=== PATIENT | female | born 1960 | race Caucasian/White ===

== ENCOUNTER → 2017-05-06 | Outpatient (CLI) | payer OTHER ==
[~2017-05-06] MED LIST: GADOBUTROL 10 ML VIAL IVP ONE
== END ==
LOC: FIMAGING 18:39
PROVIDERS: ATTEND Surgery
DX: T87.44 Infection of amputation stump, left lower extremity (principal); L97.829 Non-pressure chronic ulcer of other part of left lower leg with unspecified severity; R93.6 Abnormal findings on diagnostic imaging of limbs; Z96.642 Presence of left artificial hip joint
CPT/HCPCS: A9585

== ENCOUNTER 2017-05-14 06:06 | Inpatient (IN) | payer OTHER ==
[~2017-05-14 06:06] MED LIST changes: +BUPIVACAINE 0.5% 30 ML SDV ONE; -GADOBUTROL 10 ML VIAL IVP ONE
[2017-05-14] MEDS ORDERED: ceFAZolin 2 GM/SWFI 2 GM/20 ML SYR IVP ONE (06:31)
[2017-05-14] MEDS ORDERED: LR 1,000 ML IV ONE (06:32)
--- NOTE | 2017-05-14 06:39 | PDANEPAE ---
ANE History of Present Illness s/p R BKA, here for revision ANE Past Medical History - Cardiovascular History Hx Hypertension: No Hx Arrhythmias: No Hx Chest Pain: No Hx Coronary Artery / Peripheral Vascular Disease: No Hx CHF / Valvular Disease: No Hx Palpitations: No Cardiovascular History Comment: RUNS LOW BP - Pulmonary History Hx COPD: No Hx Asthma/Reactive Airway Disease: Yes Hx Recent Upper Respiratory Infection: No Hx Oxygen in Use at Home: No Hx Sleep Apnea: No Sleep Apnea Screening Result - Last Documented: Negative Pulmonary History Comment: PNEUMONIA IN PAST - Neurologic History Hx Cerebrovascular Accident: No Hx Seizures: No Hx Dementia: No Neurologic History Comment: ? POSS TIA IN PAST -YRS AGO - Endocrine History Hx Diabetes: No Endocrine History Comment: HYPOTHYROID - Renal History Hx Renal Disorders: No - Liver History Hx Hepatic Disorders: No Hepatic History Comment: CHOLECYSTECTOMY - Neurological & Psychiatric Hx Hx Neurological and Psychiatric Disorders: Yes Neurological / Psychiatric History Comment: ANXIETY - Cancer History Hx Cancer: No - Congenital Disorder History Hx Congenital Disorders: No - GI History Hx Gastrointestinal Disorders: Yes Gastrointestinal History Comment: ACID REFLUX. CONSTIPATION - Other Health History Other Health History: PT HAS WOUND VAC IN PLACE. L LEG DYSPLASIA. OSTEOARTHRITIS - Chronic Pain History Chronic Pain: Yes (L LEG PAIN SEVERE) - Surgical History Prior Surgeries: HIP REPLACEMENT L 01/2017. VASCULAR SURGERY REPAIR. L HIP DEBRIDEMENT W/WOUND VAC. L LEG AMPUTATION BK - ALL AT [facility] IN [place]. CHOLECYSTECTOMY. HYSTERECTOMY. X3. HIP SURGERY X2 ANE Review of Systems Review of Systems: - Exercise capacity Exercise capacity: >=4 METS ANE Patient History - Allergies Allergies/Adverse Reactions: No Known Allergies Allergy (Unverified 12/30/11 08:29) - Home Medications Home Medications: busPIRone 05/27/13 [Last Taken Unknown] Albuterol Sulfate 05/13/17 [Last Taken Unknown] Ambien 05/13/17 [Last Taken Unknown] Folic Acid 05/13/17 [Last Taken Unknown] Gabapentin 05/13/17 [Last Taken Unknown] Iron 05/13/17 [Last Taken Unknown] Levothyroxine 05/13/17 [Last Taken Unknown] Morphine Sulfate 05/13/17 [Last Taken Unknown] Multivitamin (*) 05/13/17 [Last Taken Unknown] Bim-3 05/13/17 [Last Taken Unknown] Oxycodone HCl 05/13/17 [Last Taken Unknown] Plavix 05/13/17 [Last Taken Unknown] Qvar 05/13/17 [Last Taken Unknown] - NPO status NPO Status: no food or drink >8 hours - Anes Hx Anes Hx: no prior problems - Smoking Hx Smoking Status: Never smoked - Alcohol Use Alcohol Use: None - Family Anes Hx Family Hx Anesthesia Complications: MOTHER HAD ARREST DURING INDUCTION OF ANESTHESIA ANE Labs/Vital Signs - Vital Signs Vital Signs: reviewed preoperatively; see RN documention for details Height: 152.4 cm Weight: 54.431 kg ANE Physical Exam - Airway Neck exam: FROM Mallampati Score: Class 3 Mouth exam: normal dental/mouth exam - Pulmonary Pulmonary: no respiratory distress - Cardiovascular Cardiovascular: regular rate and rhythym - ASA Status ASA Status: III ANE Anesthesia Plan Anesthesia Plan: general endotracheal anesthesia, GA with mask Total IV Anesthesia: Yes
[2017-05-14] MEDS ORDERED: MIDAZOLAM 2 MG/2 ML VIAL IVP ONE (06:44)
--- NOTE | 2017-05-14 06:46 | CPEKG ---
Heart Rate: 100 RR Interval: 600 P-R Interval: 144 QRSD Interval: 74 QT Interval: 344 QTC Interval: 444 P Johnston: 77 QRS Johnston: 62 T Wave Johnston: 60 EKG Severity - OTHERWISE NORMAL ECG - EKG Impression: SINUS TACHYCARDIA Electronically Signed By: Azeem Holguin 14-May-2017 17:31:07
[2017-05-14] MEDS ORDERED: PROPOFOL/EMULSION 500 MG/50 ML BOTTLE IV ONE (06:49)
[2017-05-14] MEDS ORDERED: KETAMINE 200 MG/20 ML VIAL ONE (06:50)
--- NOTE | 2017-05-14 07:02 | PDHPUP ---
History & Physical Update H&P update statement: This history and physical update is based on an assessment of the patient which was completed after admission or registration (within 24 hours), but prior to the surgery/procedure. H&P update: H&P reviewed & patient examined, no change in patient's condition since H&P completed (increased drainage from wound vac)
[2017-05-14 07:17] LABS: PLATELET COUNT 422 10^3/uL (150-400)
[2017-05-14] MEDS: SCOPOLAMINE HYDROBROMIDE 1 MG/3 DAYS PATCH TD SCH (07:23)
[2017-05-14] MEDS ORDERED: fentaNYL 100 MCG/2 ML INJ ONE ×2 (07:43→08:54)
[2017-05-14] MEDS ORDERED: THROMBIN (BOVINE) 5,000 UNIT VIAL TP ONE (07:49)
[2017-05-14] MEDS ORDERED: ONDANSETRON 4 MG/2 ML VIAL IVP PRN ×2 (08:20→08:53)
--- NOTE | 2017-05-14 08:24 | POSTOPPROG ---
Post Op Note Date of Operation: 05/17/17 Surgeon: Pina Greenberg Anesthesiologist: kait Anesthesia: IV Sedation Pre-op Diagnosis: infected L BKA Post-op Diagnosis: same Indication: 56 yo with complex hip, injury to iliac, L bka, now infected Procedure: revision L bka Findings: necrotic muscle Inf/Abcess present in the surg proc area at time of surgery?: Yes Depth: Deep Incisional (Fascial) EBL: 100-500 Drains: Wound Vac Specimen(s): micro and path
[2017-05-14] MEDS ORDERED: NALOXONE HCL 0.4 MG/ML INJ IVP PRN (08:53)
--- NOTE | 2017-05-14 08:56 | POSTANESTH ---
Post Anesthetic Evaluation Cardiovascular Status: Normal, Stable, Similar to Pre-Op Cond Respiratory Status: Normal, Stable, Similar to Pre-op Cond. Level of Consciousness/Mental Status: Can Participate in Eval Pain Control: Adequate, Prn Tx Ordered Nausea/Vomiting Control: Adequate, Prn Tx Ordered Complications Possibly Related to Anesthesia: None Noted
[2017-05-14] MEDS: fentaNYL 100 MCG/2 ML INJ IVP PRN ×3 (08:59→09:12)
[2017-05-14] MEDS ORDERED: HYDROmorphONE/DILAUDID 1 MG/ML INJ ONE (09:15)
[2017-05-14] MEDS: HYDROmorphONE/DILAUDID 1 MG/ML INJ IVP PRN ×3 (09:17→09:46)
[2017-05-14] MEDS: LIDOCAINE 4%/MENTHOL 1% PATCH TD SCH (10:41)
[2017-05-14] MEDS: oxyCODONE IR 5 MG TAB PO PRN ×2 (10:56→11:42)
[2017-05-14] MEDS ORDERED: ceFAZolin 2 GM/SWFI 20 ML SYR IVP ONE (12:33)
[2017-05-14] MEDS: NS 1,000 ML IV SCH (16:08)
[2017-05-14] MEDS ORDERED: ALBUTEROL INH PREPACK MDI TAKEHOME PRN (16:08)
[2017-05-14] MEDS ORDERED: ALBUTEROL 60 PUFFS/8 GM MDI IH PRN (16:12)
[2017-05-14] MEDS ORDERED: ALBUMIN 5% 500 ML IV ONE (17:00)
[2017-05-14] MEDS: cefTRIAXone 2 GM in STERILE WATER INJ 20 ML IV SCH (18:29)
--- NOTE | 2017-05-14 18:51 | GCON ---
[f rep st] CONSULTATION INFECTIOUS DISEASE CONSULTATION DATE OF CONSULTATION: 05/14/2017 REFERRING PHYSICIAN: Pina Greenberg MD REASON FOR CONSULTATION: Left BKA wound infection versus tibial osteomyelitis. HISTORY OF PRESENT ILLNESS: A 56-year-old woman with minimal past medical history, who presented mid January for an elective complex left total hip or hip arthroplasty, complicated by injury to the le ft iliac artery, with significant hematoma, resultant anemia and hypovolemic shock. She initially de clined blood products due to being a Holiness, but acutely developed left lower extremity is chemia, and when had a corresponding hemoglobin of 2.9 and surgery could not proceed without consent for transfusion, which was eventually obtained and transfusion was performed, and she underwent an il iofemoral thrombectomy, balloon angio of the left external iliac artery, and exploration of the popli teal artery, as well as a 4-part compartment fasciotomy. Revascularization, unfortunately, did not c ompletely save her leg and she required a BKA. She underwent amputation on February 11, and a left BKA February 24, 2017. She has subsequently developed a persistent wound at the end of this left BKA site, and today underwent revision of this wound by Dr. Greenberg, where necrotic muscle was identified. The area was revised and a wound VAC was placed and bone biopsy was also obtained for a path and cu lture to understand the extent of the infection. Gram stain from the tissue showed 4+ cocci and 4+ r ods. Her prior organisms are not known at the time of this dictation. The patient did complete some prolonged antibiotics, initially vancomycin and cefepime for pneumonia, and eventually changed to cefazolin, completing a 5-week course. Patient has had both a home cathet er and a PICC line. Today, patient expresses some significant reluctance in having a PICC line place d again. This was briefly discussed and assessed that it was better to take it [id number] based on culture results and bone path to determine need for IV antibiotics. Further, patient's course was c omplicated by C difficile, which was treated with vancomycin. PAST MEDICAL HISTORY/PAST SURGICAL HISTORY: Hypothyroidism, anxiety, left hip dysplasia, status post total left hip arthroplasty as above, osteoarthritis, left BKA, and a deep-seated infection which [facility] describes as a prosthetic hip infection, but records are pending. ALLERGIES: NKDA. SOCIAL HISTORY: She is a Holiness. She has 3 children. One daughter is at bedside. She i s . She is originally from [facility], moving to [place] over 20 years ago. 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 FAMILY HISTORY: Reviewed and noncontributory. REVIEW OF SYSTEMS: A complete 10-point review of systems was performed and is negative, except as me ntioned in the HPI. Patient is very emotionally strained by her recent series of events. PHYSICAL EXAMINATION: VITAL SIGNS: Blood pressure 185/53, heart rate 120, respiratory rate 18, satu ration 99% on room air, temperature 37.3 with a T-max of 37.4. GENERAL: This is a woman who appears younger than her stated age, mildly toxic, with significant pallor. HEENT: She has good dentition. Dry mucous membranes. NECK: Supple. CARDIOVASCULAR: Tachycardic. Regular rhythm. CHEST: Ana Cristina r to auscultation bilaterally. ABDOMEN: Soft, nontender. EXTREMITIES: Left leg BKA stump was warm , with a wound VAC in place, with some obvious dusky tissue along the edge. LABORATORY DATA: Preoperatively, white count 8.3, hematocrit 35, platelets of 422, 49% neutrophils, 38% lymphocytes. Microbiology as per HPI. Path is also pending. ASSESSMENT AND PLAN: This is a 56-year-old woman who had an unfortunate series of events related to elective hip arthroplasty, eventually resulting in a left below-knee amputation, which has been diffi cult to heal, which is likely multifactorial due to contributing factor of impaired blood supply, as well as deep-seated infection. The patient has now undergone debridement with cultures and assessmen t of whether or not the bone is involved. Differential diagnosis of bony abnormalities could be due to past ischemia versus osteomyelitis. Based on Gram stain, would start patient on ceftriaxone 1 g i ntravenously daily, and would resume vancomycin 125 p.o. b.i.d. for prevention of recurrence of Clost ridium difficile. We will try to obtain additional records to better delineate specifics of past inf ection requiring intravenous antibiotics. I discussed the potential need for peripherally inserted c entral catheter line, which was extremely upsetting to the patient, and elected to direct to litai ng this issue in the future after more data is obtained. Also, discussed the options for nonstandard therapy, such as high-dose oral antibiotics for treatment of her infection. Time was 75 minutes. Greater than 50% of time spent with education and counseling of the patient and her daughter including potential need for prolonged IV antibiotics as the gold standard for treating osteomyelitis. Alternative therapies, such as high-dose oral antibiotics, safety of PICC line place ment, and attempts at minimizing blood draws going forward. Thank you for this consultation. /[id number]/MODL
[2017-05-14] MEDS: GABAPENTIN 100 MG CAP PO SCH (21:09)
[2017-05-14] MEDS: VANCOMYCIN 125 MG/2.5 ML UDL PO SCH (21:09)
[2017-05-14] MEDS: busPIRone 5 MG TAB PO SCH (21:10)
[2017-05-14] MEDS: PATCH REMOVAL 1 EA PATCH TD SCH (21:16)
[2017-05-14] MEDS: BECLOMETHASONE QVAR 40 MDI IH SCH (21:42)
[2017-05-15] MEDS: LEVOTHYROXINE 50 MCG TAB PO SCH (04:57)
[2017-05-15] MEDS: NS 1,000 ML IV SCH ×2 (04:58→15:16)
[2017-05-15] MEDS: oxyCODONE IR 5 MG TAB PO PRN ×4 (06:48→19:47)
[2017-05-15] MEDS: MULTIVITAMINS 1 EACH TAB PO SCH (08:55)
[2017-05-15] MEDS: cefTRIAXone 2 GM in STERILE WATER INJ 20 ML IV SCH (08:55)
[2017-05-15] MEDS: VANCOMYCIN 125 MG/2.5 ML UDL PO SCH ×2 (08:55→21:20)
[2017-05-15] MEDS: GABAPENTIN 100 MG CAP PO SCH ×3 (08:55→21:20)
[2017-05-15] MEDS: busPIRone 5 MG TAB PO SCH ×2 (08:55→21:20)
[2017-05-15] MEDS: FOLIC ACID 1 MG TAB PO SCH (08:55)
[2017-05-15] MEDS: FERRO-SEQUELS 65 MG TAB.ER PO SCH (08:55)
[2017-05-15] MEDS ORDERED: CLOPIDOGREL BISULFATE 75 MG TAB PO SCH (09:00)
[2017-05-15] MEDS: LIDOCAINE 4%/MENTHOL 1% PATCH TD SCH (09:01)
[2017-05-15] MEDS: BECLOMETHASONE QVAR 40 MDI IH SCH ×2 (10:09→20:33)
--- NOTE | 2017-05-15 13:44 | SOAPPROG ---
SOAP Progress Note Assessment/Plan: Assessment/Plan: 56yo F POD#1 s/p revision of L BKA for chronic wound/delayed healing Wound vac veraflo to suction - will change MWF ABLA - Pt is Zoroastrianism and declines blood products. Received albumin yesterday. Will consult Heme to discuss EPO and iron supp. Repeat H/H tomorrow Pain controlled Continue inpatient. Patient additionally seen by Dr. Lopes S: c/o dizziness when she tries to get up. tired. pain controlled c oxycodone O: Laying in bed, comfortable, NAD, daughter at bedside Tachycardic No increased WOB, Supplemental O2 Wound vac intact to suction. no evidence of infection. no blood in vac canister. Objective: Vital Signs Temp Pulse Resp BP Pulse Ox 37.3 C 98 14 101/65 100 05/15/17 11:27 05/15/17 11:27 05/15/17 11:27 05/15/17 11:27 05/15/17 11:27 Microbiology 05/14/17 07:39 Gram Stain - Final Knee - Tissue Laboratory Results 05/15/17 05:30 05/15/17 05:30 05/14/17 05/15/17 05/16/17 05:59 05:59 05:59 Intake Total 3390 Output Total 350 1325 Balance 3040 -1325 ICD10 Worksheet Patient Problems: Problems Problem Status Onset Postoperative infection Acute
[2017-05-15] MEDS ORDERED: CYANO/VITAMIN B12 1000 MCG/ML VIAL IM ONE (15:29)
[2017-05-15] MEDS ORDERED: SODIUM FERRIC GLUCONAT/SUCROSE 125 MG in NS 100 ML IV ONE (15:29)
[2017-05-15] MEDS: EPOETIN ALFA 10,000 UNIT/ML VIAL SC SCH (16:35)
--- NOTE | 2017-05-15 17:24 | PCMIDPN ---
Assessment/Plan: Assessment: Left BKA wound infection. Patient covered with IV ceftriaxone. Also taking oral vancomycin. Awaiting results of surgical path. In the meantime we will continue this regimen. Plan: 1. Continue IV ceftriaxone. 2. Continue p.o. vancomycin. 3. Follow culture data and path results. Subjective: Patient is resting in her hospital bed. She is upset when she thinks about how she lost her left leg. Otherwise she states that she is feeling well. Her pain is well controlled. Objective: Ceftriaxone # 2 P.o. vancomycin # 1 Vital Signs Temp Pulse Resp BP Pulse Ox 37.2 C 102 H 16 100/55 L 100 05/15/17 15:31 05/15/17 15:31 05/15/17 15:31 05/15/17 15:31 05/15/17 15:31 Microbiology 05/14/17 07:39 Gram Stain - Final Knee - Tissue Laboratory Results 05/15/17 05:30 05/15/17 05:30 05/14/17 05/15/17 05/16/17 05:59 05:59 05:59 Intake Total 3390 400 Output Total 350 2025 Balance 3040 -1625 C-Reactive Protein 69.6 mg/L (<10.0) H 05/15/17 05:30 - Physical Exam General Appearance: WD/WN, alert, no apparent distress, non-toxic Respiratory: lungs clear, normal breath sounds, No respiratory distress Cardiac/Chest: regular rate, rhythm, tachycardia Extremities: non-tender, No normal inspection Skin: normal color, warm/dry, No rash Neuro/Psych: alert, normal mood/affect, oriented x 3 ICD10 Worksheet Patient Problems: Problems Problem Status Onset Postoperative infection Acute - ICD10 Problem Qualifiers (1) Postoperative infection
--- NOTE | 2017-05-15 18:25 | ASMTCMCOM ---
CM Note CM Note Notes: Pt in yesterday for revision of her left BKA with cellulitis. Pt came with her wound vac that was previously placed, should be in room. Pt is a Jehovas Witness and refuses blood products, Dc plan unclear, BELLE w/f. DC Plan: TBD Date Signed: 05/15/2017 06:25 PM Electronically Signed By:Jennifer Stokes RN
[2017-05-15] MEDS: PATCH REMOVAL 1 EA PATCH TD SCH (21:48)
--- NOTE | 2017-05-15 22:12 | GCON ---
[f rep st] CONSULTATION HEMATOLOGY CONSULTATION REFERRING PHYSICIAN: Pina Greenberg MD REASON FOR CONSULTATION: Anemia in Restorationist patient. HISTORY OF PRESENT ILLNESS: The patient is a 56-year-old woman with no significant past medical hist ory up until January when she underwent elective complex left total hip arthroplasty. This surgery was complicated by an injury to the left iliac artery, a significant hematoma that led to hypovolemic shock. She initially declined blood products, but she was developing severe left lower extremity is chemia. Her hemoglobin was down to 2.9 g/dL. She was eventually consented to transfusion so she cou ld undergo surgery, and she underwent an iliofemoral thrombectomy, balloon angioplasty of the left ex ternal iliac artery, and exploration of the popliteal artery. There was also a fasciotomy performed. Unfortunately, this did not save her leg, and she required a nzqmo-ddv-[id number] amputation on February 24. She has had persistent wound issues at this site and yesterday underwent revision by Dr. Greenberg. She is on Plavix from the previous procedure, which was continued, but she had a lot of oozing at t he time. Gram stain was abnormal, so ID is following her, and she is on antibiotics. Dr. Greenberg call ed me because she had a drop in her hemoglobin from 11.6 preop to 6.2 today. She would like assistan ce in helping to raise her hemoglobin to avoid transfusions. ALLERGIES: The patient has no known drug allergies. MEDICATIONS: Home medications include folic acid, Qvar, buspirone, Tums, Lidoderm, Plavix, oxycodone , multivitamin, MS Contin, levothyroxine, iron tablets, gabapentin, and albuterol. PAST MEDICAL HISTORY: Chronic illnesses include asthma, hypothyroidism, anxiety with depression, and osteoarthritis. She has never had a blood clot that she is aware of. PAST SURGICAL HISTORY: Surgeries include left hip surgery x2 in [facility] and then total left hip a rthroplasty as described in HPI and left uhlai-fgi-wzrh amputation. She also has had a hysterectomy, cholecystectomy, and 3 C-sections. SOCIAL HISTORY: She has 3 children in good health. She is Restorationist. She is , orig inally from [facility] but moved to [place] 20 years ago. 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 FAMILY HISTORY: Noncontributory for bleeding disorder. REVIEW OF SYSTEMS: Ten-point review of systems performed. Pertinent positives in HPI, otherwise neg ative. PHYSICAL EXAM: VITAL SIGNS: Temperature 37.2, pulse 102, blood pressure 100/55. GENERAL: She is p kiera, fatigued appearing but in no distress, answers questions appropriately. Her daughter is with ian mccartney. HEENT: Unremarkable. LUNGS: Clear. CARDIAC: Tachycardic with mild murmur. No significant pe ripheral edema. ABDOMEN: Soft and nontender, without hepatosplenomegaly. LYMPH NODES: No peripher al lymphadenopathy. EXTREMITIES: She has a rjmsa-xqk-lxlw amputation with a wound VAC on it. No ac [place] bleeding. LABORATORY DATA: CBC: Yesterday, platelet count up a little at bit 422, hemoglobin 11.6; today, hem oglobin 6.2. Chemistry panel was unremarkable. C-reactive protein high at 69. Albumin 2.7. IMPRESSION: 1. Severe anemia. 2. Wound infection, status post [id number]-sbx-[id number] amputation. RECOMMENDATIONS: First of all, I would recommend giving a shot of B12 and a dose of IV iron. I will check both these levels, and if they are low, then we will continue replacement. Although it is con sidered off-label use, there are some data of using erythropoietin daily at 200 to 300 units per kg o r a higher dose of 250 to 500 units every other day for a target hemoglobin of 10. I explained to ian r that there is a slight increased risk of blood clots, particularly if you drive the hemoglobin well over 12. We will monitor her blood counts closely. We probably will not be able to continue the Pr ocrit in the outpatient setting but would be able to continue iron if needed. We will follow along w ith you while in the hospital. Both she and her daughter were in agreement with this plan. /[id number]/MODL
[2017-05-16] MEDS: NS 1,000 ML IV SCH (02:53)
[2017-05-16] MEDS: LEVOTHYROXINE 50 MCG TAB PO SCH (05:33)
[2017-05-16] MEDS: FERRO-SEQUELS 65 MG TAB.ER PO SCH (08:03)
[2017-05-16] MEDS: oxyCODONE IR 5 MG TAB PO PRN ×3 (08:03→21:19)
[2017-05-16] MEDS: cefTRIAXone 2 GM in STERILE WATER INJ 20 ML IV SCH (08:03)
[2017-05-16] MEDS: LIDOCAINE 4%/MENTHOL 1% PATCH TD SCH (08:03)
[2017-05-16] MEDS: GABAPENTIN 100 MG CAP PO SCH ×3 (08:04→21:15)
[2017-05-16] MEDS: busPIRone 5 MG TAB PO SCH ×2 (08:04→21:15)
[2017-05-16] MEDS: MULTIVITAMINS 1 EACH TAB PO SCH (08:04)
[2017-05-16] MEDS: FOLIC ACID 1 MG TAB PO SCH (08:04)
[2017-05-16] MEDS: VANCOMYCIN 125 MG/2.5 ML UDL PO SCH ×2 (08:13→21:15)
[2017-05-16] MEDS: BECLOMETHASONE QVAR 40 MDI IH SCH ×2 (09:14→21:10)
--- NOTE | 2017-05-16 11:10 | PCMIDPN ---
Assessment/Plan: Assessment: Left BKA wound infection. Patient covered with IV ceftriaxone. Also taking oral vancomycin. Corynebacterium striatum being present in the wound probably necessitate addition of antibiotic covering g positives. Will add daptomycin empirically. Will check creatine kinase for baseline. Plan: 1. Continue IV ceftriaxone. 2. Continue p.o. vancomycin. 3. start IV daptomycin. 4. Follow culture data and path results. 05/16/17 17:11 Subjective: Patient is doing somewhat better today. She has a more well-appearing presentation. Less pain. Not short of breath. Objective: Ceftriaxone # 3 p.o. vancomycin # 2 Vital Signs Temp Pulse Resp BP Pulse Ox 37.2 C 98 12 104/63 98 05/16/17 07:54 05/16/17 09:17 05/16/17 09:17 05/16/17 07:54 05/16/17 09:17 Microbiology 05/14/17 07:39 Gram Stain - Final Knee - Tissue Laboratory Results 05/16/17 04:57 05/15/17 05:30 05/15/17 05/16/17 05/17/17 05:59 05:59 05:59 Intake Total 3390 1700 Output Total 350 2525 900 Balance 3040 -825 -900 C-Reactive Protein 69.6 mg/L (<10.0) H 05/15/17 05:30 - Physical Exam General Appearance: WD/WN, alert, no apparent distress, non-toxic Respiratory: lungs clear, normal breath sounds, No respiratory distress Cardiac/Chest: regular rate, rhythm, No tachycardia Extremities: non-tender, No normal inspection Skin: normal color, warm/dry, No rash Neuro/Psych: alert, normal mood/affect, oriented x 3 ICD10 Worksheet Patient Problems: Problems Problem Status Onset Postoperative infection Acute - ICD10 Problem Qualifiers (1) Postoperative infection
--- NOTE | 2017-05-16 11:15 | SOAPPROG ---
SOAP Progress Note Assessment/Plan: Assessment: 1. post op anemia, b12 ok, iron studies most c/w anemia of chronic disease 2. Jehovah witness Plan:Continue procrit, follow hgb, ok without txn for now 05/16/17 11:11 Subjective: Feels ok Objective: Vital Signs Temp Pulse Resp BP Pulse Ox 98.9 F 98 12 104/63 98 05/16/17 07:54 05/16/17 09:17 05/16/17 09:17 05/16/17 07:54 05/16/17 09:17 Microbiology 05/14/17 07:39 Gram Stain - Final Knee - Tissue Laboratory Results 05/16/17 04:57 05/15/17 05:30 05/15/17 05/16/17 05/17/17 05:59 05:59 05:59 Intake Total 3390 1700 Output Total 350 2525 900 Balance 3040 -825 -900 Physical Exam - Physical Exam General Appearance: alert, no apparent distress Respiratory: normal breath sounds Cardiac/Chest: tachycardia Abdomen: normal bowel sounds, non-tender ICD10 Worksheet Patient Problems: Problems Problem Status Onset Postoperative infection Acute
[2017-05-16] MEDS ORDERED: DAPTOmycin 300 MG in NS 100 ML IV SCH (11:30)
[2017-05-16] MEDS: DAPTOMYCIN IV SCH (13:15)
[2017-05-16] MEDS: NS IV SCH (13:15)
[2017-05-16] MEDS: EPOETIN ALFA 10,000 UNIT/ML VIAL SC SCH (13:33)
--- NOTE | 2017-05-16 13:58 | SOAPPROG ---
SOAP Progress Note Assessment/Plan: Assessment: s/p revision of BKA Anemia of chronic disease Acute blood loss anemia Does not want blood products hemodynamically stable Will change vac tomorrow and decide on discharge plan Appreciate ID and hematology S: Feeling improved O: Veraflo to suction. Plan: 05/16/17 13:56 Objective: Vital Signs Temp Pulse Resp BP Pulse Ox 37.1 C 100 14 89/56 L 98 05/16/17 11:25 05/16/17 11:25 05/16/17 11:25 05/16/17 11:25 05/16/17 11:25 Microbiology 05/14/17 07:39 Gram Stain - Final Knee - Tissue Laboratory Results 05/16/17 04:57 05/15/17 05:30 05/15/17 05/16/17 05/17/17 05:59 05:59 05:59 Intake Total 3390 1700 Output Total 350 4359 900 Balance 8860 -825 -900 ICD10 Worksheet Patient Problems: Problems Problem Status Onset Postoperative infection Acute
[2017-05-16] MEDS ORDERED: POLYETHYLENE GLYCOL 3350 17 GM PKT PO PRN (18:06)
[2017-05-16] MEDS ORDERED: BISACODYL 10 MG SUPP PR PRN (18:06)
[2017-05-16] MEDS ORDERED: MAGNESIUM HYDROXIDE 30 ML UDCUP PO PRN (18:06)
[2017-05-16] MEDS ORDERED: LACTULOSE 20 GM/30 ML UDCUP PO PRN (18:06)
[2017-05-16] MEDS: DOCUSATE SODIUM 100 MG CAP PO SCH (21:15)
[2017-05-16] MEDS: SENNOSIDES/DOCUSATE SODIUM TAB PO SCH (21:15)
[2017-05-16] MEDS: PATCH REMOVAL 1 EA PATCH TD SCH (21:20)
[2017-05-17] MEDS: oxyCODONE IR 5 MG TAB PO PRN ×5 (06:04→19:37)
[2017-05-17] MEDS: LEVOTHYROXINE 50 MCG TAB PO SCH (06:04)
[2017-05-17] MEDS: SCOPOLAMINE HYDROBROMIDE 1 MG/3 DAYS PATCH TD SCH (06:09)
[2017-05-17] MEDS: BECLOMETHASONE QVAR 40 MDI IH SCH ×2 (08:30→21:19)
[2017-05-17] MEDS: FOLIC ACID 1 MG TAB PO SCH (08:48)
[2017-05-17] MEDS: DOCUSATE SODIUM 100 MG CAP PO SCH ×2 (08:48→22:12)
[2017-05-17] MEDS: MULTIVITAMINS 1 EACH TAB PO SCH (08:48)
[2017-05-17] MEDS: GABAPENTIN 100 MG CAP PO SCH ×3 (08:48→22:12)
[2017-05-17] MEDS: FERRO-SEQUELS 65 MG TAB.ER PO SCH (08:49)
[2017-05-17] MEDS: busPIRone 5 MG TAB PO SCH ×2 (08:49→22:12)
[2017-05-17] MEDS: LIDOCAINE 4%/MENTHOL 1% PATCH TD SCH ×2 (08:49→22:43)
[2017-05-17] MEDS: DAPTOMYCIN IV SCH (08:49)
[2017-05-17] MEDS: NS IV SCH (08:49)
[2017-05-17] MEDS: cefTRIAXone 2 GM in STERILE WATER INJ 20 ML IV SCH (08:49)
[2017-05-17] MEDS: SENNOSIDES/DOCUSATE SODIUM TAB PO SCH ×2 (08:50→22:28)
[2017-05-17] MEDS: VANCOMYCIN 125 MG/2.5 ML UDL PO SCH ×2 (08:58→22:13)
--- NOTE | 2017-05-17 11:26 | SOAPPROG ---
KRISTEN Progress Note Assessment/Plan: Assessment: 1. post op anemia, b12 ok, iron studies most c/w anemia of chronic disease, hgb a bit better today at 6.2 2. Jehovah witness Plan:Continue procrit, follow hgb, ok without txn for now 05/16/17 11:11 05/17/17 11:25 05/17/17 11:26 Subjective: Feels ok Objective: Vital Signs Temp Pulse Resp BP Pulse Ox 98.8 F 99 16 83/57 L 96 05/17/17 11:05 05/17/17 11:05 05/17/17 11:05 05/17/17 11:05 05/17/17 11:05 Microbiology 05/14/17 07:39 Gram Stain - Final Knee - Tissue Laboratory Results 05/17/17 05:00 05/15/17 05:30 05/16/17 05/17/17 05/18/17 05:59 05:59 05:59 Intake Total 1700 Output Total 3422 3331 Balance -825 -1050 ICD10 Worksheet Patient Problems: Problems Problem Status Onset Postoperative infection Acute
--- NOTE | 2017-05-17 11:33 | SOAPPROG ---
SOAP Progress Note Assessment/Plan: Assessment: s/p revision of BKA Anemia of chronic disease Acute blood loss anemia Does not want blood products hemodynamically stable Changed vera kye vac. Wound healthy. Will place traditional home vac at discharge (already has it) Awaiting pathology Appreciate ID and hematology S: Feeling improved O: Wound measures [id number] with 6 cm undermine posterior to tibia. 100% healthy with beefy red granulation Plan: 05/16/17 13:56 05/17/17 11:32 Objective: Vital Signs Temp Pulse Resp BP Pulse Ox 37.1 C 99 16 83/57 L 96 05/17/17 11:05 05/17/17 11:05 05/17/17 11:05 05/17/17 11:05 05/17/17 11:05 Microbiology 05/14/17 07:39 Gram Stain - Final Knee - Tissue Laboratory Results 05/17/17 05:00 05/15/17 05:30 05/16/17 05/17/17 05/18/17 05:59 05:59 05:59 Intake Total 1700 Output Total 1538 1050 Balance -825 -1050 ICD10 Worksheet Patient Problems: Problems Problem Status Onset Postoperative infection Acute
[2017-05-17] MEDS: EPOETIN ALFA 10,000 UNIT/ML VIAL SC SCH (15:42)
--- NOTE | 2017-05-17 18:08 | ASMTCMCOM ---
CM Note CM Note Notes: Reviewed chart regarding discharge plan of care, pt's progress. Spoke w/ JENNI Hou - per Savi, pt will likely need home care for assistance w/ wound vac on discharge. Pt already has her own wound vac at bedside to be placed when ready for d/c. CM will need to see pt and family Thursday05/18/17 to discuss home care options. Current Discharge Plan: Home w/ home health care Date Signed: 05/17/2017 06:08 PM Electronically Signed By:Lizy Friedman RN
[2017-05-17] MEDS: PATCH REMOVAL 1 EA PATCH TD SCH (23:14)
[2017-05-18] MEDS: oxyCODONE IR 5 MG TAB PO PRN ×6 (00:18→21:53)
[2017-05-18] MEDS: LEVOTHYROXINE 50 MCG TAB PO SCH (06:03)
[2017-05-18] MEDS: GABAPENTIN 100 MG CAP PO SCH ×3 (08:45→21:53)
[2017-05-18] MEDS: FOLIC ACID 1 MG TAB PO SCH (08:45)
[2017-05-18] MEDS: FERRO-SEQUELS 65 MG TAB.ER PO SCH (08:45)
[2017-05-18] MEDS: busPIRone 5 MG TAB PO SCH ×2 (08:46→20:01)
[2017-05-18] MEDS: VANCOMYCIN 125 MG/2.5 ML UDL PO SCH ×2 (08:46→20:03)
[2017-05-18] MEDS: ASPIRIN 325 MG TAB PO SCH (08:46)
[2017-05-18] MEDS: MULTIVITAMINS 1 EACH TAB PO SCH (08:46)
[2017-05-18] MEDS: DOCUSATE SODIUM 100 MG CAP PO SCH ×2 (08:47→20:02)
[2017-05-18] MEDS: SENNOSIDES/DOCUSATE SODIUM TAB PO SCH ×2 (08:47→21:46)
[2017-05-18] MEDS: cefTRIAXone 2 GM in STERILE WATER INJ 20 ML IV SCH (08:48)
[2017-05-18] MEDS: LIDOCAINE 4%/MENTHOL 1% PATCH TD SCH (08:50)
[2017-05-18] MEDS: BECLOMETHASONE QVAR 40 MDI IH SCH ×2 (09:10→21:55)
[2017-05-18] MEDS: NS IV SCH (10:09)
[2017-05-18] MEDS: DAPTOMYCIN IV SCH (10:09)
--- NOTE | 2017-05-18 10:28 | SOAPPROG ---
SOAP Progress Note Assessment/Plan: Assessment/Plan: 56yo F with history of delayed healing of left BKA, POD #4 s/ p BKA revision. Continue Veraflo - next change due 05/20/17 Acute blood loss anemia and anemia of chronic disease - Continue Procrit. H&H improving. Continue IV fluids. Elevate Left leg stump to decrease edema. Appreciate ID, heme/onc S: Patient reports increased discomfort and swelling of the Left leg this morning. She normally has pain in the area. She is also requesting an additional antidepressant. O: Patient is alert, laying in bed in no acute distress. Daughter at bedside RESP: no increased work of breathing with nasal canula at 100% O2. CV: Mild swelling of Left leg. No edema of RLE. SKIN: Wound vac intact to suction. Canister contains serosanguinous fluid, no michael blood. No obvious signs of infection, no erythema or purulent drainage. PSYCH: both patient and daughter anxious. Objective: Vital Signs Temp Pulse Resp BP Pulse Ox 37.1 C 97 16 99/50 L 93 05/18/17 08:00 05/18/17 08:00 05/18/17 08:00 05/18/17 08:00 05/18/17 08:00 Microbiology 05/14/17 07:39 Gram Stain - Final Knee - Tissue Laboratory Results 05/18/17 05:12 05/15/17 05:30 05/17/17 05/18/17 05/19/17 05:59 05:59 05:59 Output Total 1050 Balance -1050 ICD10 Worksheet Patient Problems: Problems Problem Status Onset Postoperative infection Acute
[2017-05-18] MEDS ORDERED: ALBUMIN 5% 500 ML IV ONE (12:59)
--- NOTE | 2017-05-18 14:06 | PCMIDPN ---
Assessment/Plan: Assessment/Plan: * Left BKA stump site wound infection/possible osteomyelitis: Cultures reviewed which early microbial. Continue daptomycin and ceftriaxone based on culture findings. Await bone pathology findings to help define duration of treatment. * History is C difficile: Continue suppressive oral vancomycin while on broad- spectrum antibiotic therapy. 05/18/17 14:03 Subjective: Patient complains of pain in left BKA stump site. Objective: Vital Signs Temp Pulse Resp BP Pulse Ox 37.1 C 92 16 85/52 L 96 05/18/17 12:00 05/18/17 12:00 05/18/17 12:00 05/18/17 12:30 05/18/17 12:00 Microbiology 05/14/17 07:39 Gram Stain - Final Knee - Tissue Laboratory Results 05/18/17 05:12 05/15/17 05:30 05/17/17 05/18/17 05/19/17 05:59 05:59 05:59 Output Total 1050 Balance -1050 C-Reactive Protein 69.6 mg/L (<10.0) H 05/15/17 05:30 Ceftriaxone # 5 Daptomycin # 3 Cultures reviewed showing growth of Enterobacter, Streptococcus mitis/oralis, Corynebacterium striatum and H. parainfluenza - Physical Exam General Appearance: alert, no apparent distress EENT: No scleral icterus, No conjunctival petechiae Respiratory: lungs clear, No respiratory distress Cardiac/Chest: regular rate, rhythm Extremities: inflammation (Left lower extremity with wound VAC in place over BKA stump site; no active cellulitis around wound VAC margins) Abdomen: non-tender, No distended ICD10 Worksheet Patient Problems: Problems Problem Status Onset Postoperative infection Acute
[2017-05-18] MEDS: EPOETIN ALFA 10,000 UNIT/ML VIAL SC SCH (14:24)
--- NOTE | 2017-05-18 15:41 | ASMTCMCOM ---
CM Note CM Note Notes: CM met w/ pt and sister in law for dispo planning. Pt would like a referral made to [facility] for ivabx and a referral to [facility] for RN. Pt reports that she had both these services in the past. Pt would like to work w/ the same RN as before (Lore). Anticipate d/c for the end of the week. CM to follow. Plan: JENNI Miller with [facility] Date Signed: 05/18/2017 03:40 PM Electronically Signed By:ARGENIS Ramirez
[2017-05-18] MEDS: PATCH REMOVAL 1 EA PATCH TD SCH (20:15)
[2017-05-18] MEDS ORDERED: NS BOLUS 500 ML (Wide open) IV ONE (20:30)
[2017-05-19] MEDS: oxyCODONE IR 5 MG TAB PO PRN ×4 (01:51→21:01)
[2017-05-19] MEDS: LEVOTHYROXINE 50 MCG TAB PO SCH (05:21)
[2017-05-19] MEDS: BECLOMETHASONE QVAR 40 MDI IH SCH ×2 (08:32→21:02)
[2017-05-19] MEDS: cefTRIAXone 2 GM in STERILE WATER INJ 20 ML IV SCH (10:11)
[2017-05-19] MEDS: NS IV SCH (10:16)
[2017-05-19] MEDS: DAPTOMYCIN IV SCH (10:16)
[2017-05-19] MEDS: SENNOSIDES/DOCUSATE SODIUM TAB PO SCH ×2 (10:17→21:03)
[2017-05-19] MEDS: MULTIVITAMINS 1 EACH TAB PO SCH (10:17)
[2017-05-19] MEDS: ASPIRIN 325 MG TAB PO SCH (10:17)
[2017-05-19] MEDS: busPIRone 5 MG TAB PO SCH ×2 (10:17→21:01)
[2017-05-19] MEDS: GABAPENTIN 100 MG CAP PO SCH ×3 (10:17→21:01)
[2017-05-19] MEDS: DOCUSATE SODIUM 100 MG CAP PO SCH ×2 (10:18→21:01)
[2017-05-19] MEDS: FOLIC ACID 1 MG TAB PO SCH (10:19)
[2017-05-19] MEDS: FERRO-SEQUELS 65 MG TAB.ER PO SCH (10:19)
[2017-05-19] MEDS: LIDOCAINE 4%/MENTHOL 1% PATCH TD SCH ×3 (10:24→22:07)
[2017-05-19] MEDS: LORazepam 0.5 MG TAB PO PRN ×2 (10:44→14:36)
[2017-05-19] MEDS: VANCOMYCIN 125 MG/2.5 ML UDL PO SCH ×2 (10:53→21:01)
[2017-05-19] MEDS ORDERED: ALTEPLASE 2 MG VIAL IVP PRN (11:48)
--- NOTE | 2017-05-19 12:57 | SOAPPROG ---
SOAP Progress Note Assessment/Plan: Assessment/Plan: 56yo F with history of delayed healing of left BKA, POD #5 s/ p BKA revision. Wound vac to suction - dressing change due 05/20/17 Acute blood loss anemia and anemia of chronic disease - Continue Procrit. H&H has stabilized at 6.7/20.8 Poss PICC today if ID determines that she needs prolonged IV antibiotics - await recs Hypotension - stable Elevate Left leg stump to decrease edema. Appreciate ID, heme/onc Seen c Dr. Greenberg S: Patient reports pain has improved since Veraflo change yesterday. She normally has pain in the area. Swelling slightly improved O: Patient is alert, laying in bed in no acute distress. Daughter at bedside RESP: no increased work of breathing, supplemental O2 CV: Minimal swelling of Left leg. No edema of RLE. SKIN: Wound vac intact to suction. No obvious signs of infection, no erythema or purulent drainage. PSYCH: both patient and daughter anxious Objective: Vital Signs Temp Pulse Resp BP Pulse Ox 37.0 C 97 16 95/64 L 99 05/19/17 11:31 05/19/17 11:31 05/19/17 11:31 05/19/17 11:31 05/19/17 11:31 Microbiology 05/14/17 07:39 Gram Stain - Final Knee - Tissue Laboratory Results 05/19/17 05:19 05/15/17 05:30 05/18/17 05/19/17 05/20/17 05:59 05:59 05:59 Intake Total 150 Balance 150 ICD10 Worksheet Patient Problems: Problems Problem Status Onset Postoperative infection Acute
--- NOTE | 2017-05-19 13:33 | PCMIDPN ---
Assessment/Plan: Assessment/Plan: 1. Left BKa stump infection- polymicrobial - s/p I & D on 05/15/17 - On broad coverage with Dapto, Ceftriaxone - Cultures with: Enterobacter, corynebacterium, Strep mitis, H. parainfluenza. - Will likely need at least 7 days more treatment for wound infection unless path positive for osteomyelitis -path pending - will place picc line given above. Discussed at length with patient, risks/ benefits etc. She agrees to it. -Care coordinated with RN - care coordinated with surgery 2. Hx. c. diff - on supressive oral vanco while on therapy and for at least one week after Meds dapto 300mg daily - 05/16/17 ceftiaxone 2g daily- 05/14/17 -oral vanco 125mg q12- Subjective: afebrile. was anxious this AM but much calmer now. She feels better. she denies sob, abd pian or diarrhea. some pain related to BKA stump but not more than past several days. Objective: Vital Signs Temp Pulse Resp BP Pulse Ox 37.0 C 97 16 95/64 L 99 05/19/17 11:31 05/19/17 11:31 05/19/17 11:31 05/19/17 11:31 05/19/17 11:31 Microbiology 05/14/17 07:39 Gram Stain - Final Knee - Tissue Laboratory Results 05/19/17 05:19 05/15/17 05:30 05/18/17 05/19/17 05/20/17 05:59 05:59 05:59 Intake Total 150 Balance 150 C-Reactive Protein 69.6 mg/L (<10.0) H 05/15/17 05:30 - Physical Exam General Appearance: alert, no apparent distress Respiratory: lungs clear Cardiac/Chest: regular rate, rhythm Extremities: swelling (left BKA with wound vac. no erythema noted. ) Abdomen: normal bowel sounds, non-tender, soft, No distended Skin: No erythema ICD10 Worksheet Patient Problems: Problems Problem Status Onset Postoperative infection Acute
--- NOTE | 2017-05-19 14:42 | SOAPPROG ---
SOAP Progress Note Assessment/Plan: Assessment/Plan: 56 yo Spiritism w post-op anemia 1. anemia - improved w daily procrit, iron Hgb now 6.7 Iron studies support anemia of chronic dz and blood loss doing well; no txn needed at this time 2. Polymicrobial wound infection - IV abx per ID wound vac 05/19/17 14:38 05/19/17 14:39 05/19/17 14:40 05/19/17 14:40 Subjective: Pt reports feeling fine NAD Objective: Vital Signs Temp Pulse Resp BP Pulse Ox 37.0 C 97 16 95/64 L 99 05/19/17 11:31 05/19/17 11:31 05/19/17 11:31 05/19/17 11:31 05/19/17 11:31 Microbiology 05/14/17 07:39 Gram Stain - Final Knee - Tissue Laboratory Results 05/19/17 05:19 05/15/17 05:30 05/18/17 05/19/17 05/20/17 05:59 05:59 05:59 Intake Total 150 Balance 150 Gen - NAD HEENT - pale conjunctiva CV - systolic murmur noted Abd - soft Ext - left BKA, wound vac ICD10 Worksheet Patient Problems: Problems Problem Status Onset Postoperative infection Acute
[2017-05-19] MEDS: EPOETIN ALFA 10,000 UNIT/ML VIAL SC SCH (15:40)
[2017-05-19] MEDS: PATCH REMOVAL 1 EA PATCH TD SCH (21:03)
[2017-05-20] MEDS: SCOPOLAMINE HYDROBROMIDE 1 MG/3 DAYS PATCH TD SCH (06:22)
[2017-05-20] MEDS: LEVOTHYROXINE 50 MCG TAB PO SCH (06:22)
[2017-05-20] MEDS: cefTRIAXone 2 GM in STERILE WATER INJ 20 ML IV SCH (09:20)
[2017-05-20] MEDS: busPIRone 5 MG TAB PO SCH ×2 (09:21→21:05)
[2017-05-20] MEDS: DAPTOMYCIN IV SCH (09:21)
[2017-05-20] MEDS: NS IV SCH (09:21)
[2017-05-20] MEDS: FERRO-SEQUELS 65 MG TAB.ER PO SCH (09:21)
[2017-05-20] MEDS: ASPIRIN 325 MG TAB PO SCH (09:22)
[2017-05-20] MEDS: MULTIVITAMINS 1 EACH TAB PO SCH (09:22)
[2017-05-20] MEDS: GABAPENTIN 100 MG CAP PO SCH ×3 (09:22→21:05)
[2017-05-20] MEDS: oxyCODONE IR 5 MG TAB PO PRN ×4 (09:22→23:17)
[2017-05-20] MEDS: DOCUSATE SODIUM 100 MG CAP PO SCH ×2 (09:23→21:04)
--- NOTE | 2017-05-20 09:45 | SOAPPROG ---
SOAP Progress Note Assessment/Plan: Assessment/Plan: 56yo F with history of delayed healing of left BKA, POD #6 s/ p BKA revision. Final path and cultures pending Wound vac to suction - changed today Acute blood loss anemia and anemia of chronic disease - Continue Procrit. H&H stable Poss PICC if ID determines that she needs prolonged IV antibiotics - await recs Appreciate ID, heme/onc Dispo: likely home tomorrow with home health (vac change thursday, thursday) then f/ u with Dr. Greenberg next week for vac change. Seen c Dr. Greenberg S: Feeling well. No pain with dressing change O: Sitting up in chair, comfortable, NAD Daughter at bedside RESP: no increased work of breathing CV: No peripheral edema SKIN: LLE wound 4 x 16 x 1cm, undermining 5cm posteriorly - MUCH BETTER! Healthy granulation tissue in the base. No surrounding erythema. Wound vac dressing reapplied Mood and affect normal Objective: Vital Signs Temp Pulse Resp BP Pulse Ox 37.1 C 101 H 18 96/62 L 94 05/20/17 07:29 05/20/17 07:29 05/20/17 07:29 05/20/17 07:29 05/20/17 07:29 Microbiology 05/14/17 07:39 Gram Stain - Final Knee - Tissue Laboratory Results 05/20/17 05:00 05/15/17 05:30 05/19/17 05/20/17 05/21/17 05:59 05:59 05:59 Intake Total 150 26 Output Total 650 Balance 150 -624 ICD10 Worksheet Patient Problems: Problems Problem Status Onset Postoperative infection Acute
[2017-05-20] MEDS: VANCOMYCIN 125 MG/2.5 ML UDL PO SCH ×2 (10:33→21:04)
[2017-05-20] MEDS: FOLIC ACID 1 MG TAB PO SCH (10:34)
[2017-05-20] MEDS: BECLOMETHASONE QVAR 40 MDI IH SCH ×2 (10:35→21:23)
[2017-05-20] MEDS: SENNOSIDES/DOCUSATE SODIUM TAB PO SCH ×2 (10:35→21:05)
[2017-05-20] MEDS: PATCH REMOVAL 1 EA PATCH TD SCH (10:37)
[2017-05-20] MEDS: EPOETIN ALFA 10,000 UNIT/ML VIAL SC SCH (14:25)
--- NOTE | 2017-05-20 15:32 | PCMIDPN ---
Assessment/Plan: Assessment: Left BKA wound infection. Patient covered with IV ceftriaxone as well as daptomycin. Also taking oral vancomycin twice daily in prophylaxis to C difficile. Overall doing better. Bone pathology is still not returned. Plan: 1. Continue IV ceftriaxone and daptomycin. 2. Continue p.o. vancomycin. 3. Follow culture data and path results. 05/16/17 17:11 05/20/17 15:30 Subjective: Patient is sitting up in her chair. Her hematocrit is gradually increasing. She states that she is feeling better. No fevers or chills. Objective: Ceftriaxone # 7 Daptomycin # 5 P.o. Vanco # 6 Vital Signs Temp Pulse Resp BP Pulse Ox 37.0 C 96 17 84/47 L 95 05/20/17 12:00 05/20/17 12:00 05/20/17 12:00 05/20/17 12:00 05/20/17 12:00 Microbiology 05/14/17 07:39 Gram Stain - Final Knee - Tissue Laboratory Results 05/20/17 05:00 05/15/17 05:30 05/19/17 05/20/17 05/21/17 05:59 05:59 05:59 Intake Total 150 26 Output Total 650 Balance 150 -624 C-Reactive Protein 69.6 mg/L (<10.0) H 05/15/17 05:30 - Physical Exam General Appearance: WD/WN, alert, no apparent distress, non-toxic Respiratory: lungs clear, normal breath sounds, No respiratory distress Cardiac/Chest: regular rate, rhythm, tachycardia Extremities: No normal inspection, No inflammation Skin: normal color, warm/dry, No rash Neuro/Psych: alert, normal mood/affect, oriented x 3 ICD10 Worksheet Patient Problems: Problems Problem Status Onset Postoperative infection Acute - ICD10 Problem Qualifiers (1) Postoperative infection
[2017-05-20] MEDS: LIDOCAINE 4%/MENTHOL 1% PATCH TD SCH (21:04)
[2017-05-21] MEDS: oxyCODONE IR 5 MG TAB PO PRN ×3 (02:28→16:16)
[2017-05-21] MEDS: LEVOTHYROXINE 50 MCG TAB PO SCH (05:07)
[2017-05-21] MEDS: GABAPENTIN 100 MG CAP PO SCH (09:10)
[2017-05-21] MEDS: busPIRone 5 MG TAB PO SCH (09:11)
[2017-05-21] MEDS: MULTIVITAMINS 1 EACH TAB PO SCH (09:11)
[2017-05-21] MEDS: DOCUSATE SODIUM 100 MG CAP PO SCH (09:11)
[2017-05-21] MEDS: SENNOSIDES/DOCUSATE SODIUM TAB PO SCH (09:11)
[2017-05-21] MEDS: ASPIRIN 325 MG TAB PO SCH (09:12)
[2017-05-21] MEDS: VANCOMYCIN 125 MG/2.5 ML UDL PO SCH (09:12)
[2017-05-21] MEDS: FERRO-SEQUELS 65 MG TAB.ER PO SCH (09:12)
[2017-05-21] MEDS: FOLIC ACID 1 MG TAB PO SCH (09:12)
[2017-05-21] MEDS: cefTRIAXone 2 GM in STERILE WATER INJ 20 ML IV SCH (09:13)
[2017-05-21] MEDS: PATCH REMOVAL 1 EA PATCH TD SCH (09:23)
[2017-05-21] MEDS: BECLOMETHASONE QVAR 40 MDI IH SCH (09:25)
[2017-05-21] MEDS: NS IV SCH (10:57)
[2017-05-21] MEDS: DAPTOMYCIN IV SCH (10:57)
[2017-05-21 11:32] VITALS: BP 88/51; PULSE 99; RESP 16; TEMP 98.9; O2SAT 97
[2017-05-21] MEDS ORDERED: GABAPENTIN 300 MG CAP PO SCH (12:57)
--- NOTE | 2017-05-21 13:10 | PDIAF ---
- Diagnosis Diagnosis: infected L BKA s/p revision Code Status: Full Code - Medication Management Discharge Medications: Medications to Continue on Transfer Albuterol Sulfate [Proair Hfa] 8.5 gm IH Q4 PRN 05/14/17 [Last Taken 05/11/17] Beclomethasone Qvar 40 [Qvar 40 (*)] 2 puffs IH BID 05/14/17 [Last Taken Unknown ] Calcium Carbonate [Tums 500MG (*)] 500 - 1,000 mg PO Q4 PRN 05/14/17 [Last Taken Unknown] Folic Acid [Folic Acid 1 MG (*)] 1 mg PO DAILY 05/14/17 [Last Taken Unknown] Iron/Vit C/Docusate [Rose-Sequels 65 mg (*)] 1 each PO DAILY 05/14/17 [Last Taken 05/11/17] Levothyroxine [Synthroid 50 mcg (*)] 50 mcg PO DAILY06 05/14/17 [Last Taken ] Lidocaine [Lidoderm] 1 - 2 each TP HS 05/14/17 [Last Taken 05/13/17] Multivitamins [Multivitamin (*)] 1 each PO DAILY 05/14/17 [Last Taken 05/11/17] Ondansetron [Ondansetron Odt] 8 mg PO TID PRN 05/14/17 [Last Taken 05/10/17] busPIRone [Buspar (*)] 15 mg PO BID 05/14/17 [Last Taken 05/13/17] Alteplase [Cathflo Activase 2 mg (*)] 2 mg IVP PRN PRN vial 05/21/17 [Last Taken Unknown] Aspirin [Aspirin 325 mg (*)] 325 mg PO DAILY tab 05/21/17 [Last Taken Unknown] DAPTOmycin [Cubicin] 300 mg IV DAILY@1000 ml 05/21/17 [Last Taken Unknown] Docusate Sodium [Colace 100 MG (*)] 100 mg PO BID cap 05/21/17 [Last Taken Unknown] Gabapentin [Neurontin 100 MG (*)] 300 mg PO TID #90 cap 05/21/17 [Last Taken Unknown] LORazepam [Ativan (*)] 0.5 mg PO Q4HRS PRN #30 tab 05/21/17 [Last Taken Unknown] Sterile Water Inj [Sterile Water] 10 ml IV DAILY syr 05/21/17 [Last Taken Unknown] cefTRIAXone [Rocephin] 2 gm IV DAILY vial 05/21/17 [Last Taken Unknown] morphINE SR [Ms Contin/Oramorph 15 mg (*)] 15 mg PO HS #30 tab 05/21/17 [Last Taken Unknown] oxyCODONE IR [Oxycodone Ir (*)] 5 - 10 mg PO Q3H PRN #60 tab 05/21/17 [Last Taken Unknown] Discharge Medications: Refer to the Discharge Home Medication list for PRN reason. PICC Care - Routine: Yes - Orders Services needed: Home Care, Registered Nurse Home Care Face to Face: I certify that this patient was under my care and that I had the required [id number] encounter meeting the encounter requirements on the discharge day. My findings support the fact that the patient is homebound as defined in Home Care Face to Face Continued: CMS Chapter 7 Medicare Benefits Manual 30.1.1 , The condition of the patient is such that there exists a normal inability to leave home and consequently, leaving home would require a considerable and taxing effort. Diet Recommendation: no restrictions on diet Wound Care Instructions: change wound vac every and Thursday. I will see on Wednesdays at 4 pm at wound healing center. Please have pt come to appt with supplies. Activity/Weight Bearing Restrictions: nwb lle. Transfers are fine - Follow Up Care Current Providers and Referrals: NONE *PRIMARY CARE P,. [Primary Care Provider] - Wound Healing Center,[facility] [Clinic] - 05/27/17 4:00 pm
--- NOTE | 2017-05-21 13:16 | SOAPPROG ---
SOAP Progress Note Assessment/Plan: Assessment: 56yo F with history of delayed healing of left BKA, POD#7 s/p BKA revision Pathology without osteomylitis Anemia of chronic disease Acute blood loss anemia Continue ASA. H&H stable. Changed wound vac to home unit. PICC for continued IV abx per ID Dispo: Discharge home with wound vac, ASA prophylaxis, MS Contin and Oxy IR, and increase Gabapentin to 300mg TID. Abx per ID. DC Plavix Follow up at Wound Healing Center next Thu at 4 pm. ID will see in conjunction Appreciate ID and hematology S: Feeling well. Feelings intermittent "biting" pain at the BKA site. Pain controlled during the day. Pt reports she needs pain management around 2am each night. O: Sitting up and eating lunch in recliner. No acute distress. Daughter at beside. RESP: No increased work of breathing on RA. EXT: Wound vac to suction. No erythema, redness, swelling or other signs of infection. Changed to home vac PSYCH: Normal mood an affect. Does not appear anxious. 05/21/17 15:37 05/21/17 15:44 Objective: Vital Signs Temp Pulse Resp BP Pulse Ox 37.2 C 99 16 88/51 L 97 05/21/17 11:29 05/21/17 11:29 05/21/17 11:29 05/21/17 11:29 05/21/17 11:29 Microbiology 05/14/17 07:39 Gram Stain - Final Knee - Tissue Laboratory Results 05/21/17 05:10 05/15/17 05:30 05/20/17 05/21/17 05/22/17 05:59 05:59 05:59 Intake Total 26 Output Total 650 Balance -624 ICD10 Worksheet Patient Problems: Problems Problem Status Onset Postoperative infection Acute
[2017-05-21] MEDS: EPOETIN ALFA 10,000 UNIT/ML VIAL SC SCH (13:50)
--- NOTE | 2017-05-21 13:56 | PDIAF ---
- Diagnosis Diagnosis: infected L BKA s/p revision Code Status: Full Code - Medication Management Discharge Medications: Medications to Continue on Transfer Albuterol Sulfate [Proair Hfa] 8.5 gm IH Q4 PRN 05/14/17 [Last Taken 05/11/17] Beclomethasone Qvar 40 [Qvar 40 (*)] 2 puffs IH BID 05/14/17 [Last Taken Unknown ] Calcium Carbonate [Tums 500MG (*)] 500 - 1,000 mg PO Q4 PRN 05/14/17 [Last Taken Unknown] Folic Acid [Folic Acid 1 MG (*)] 1 mg PO DAILY 05/14/17 [Last Taken Unknown] Iron/Vit C/Docusate [Rose-Sequels 65 mg (*)] 1 each PO DAILY 05/14/17 [Last Taken 05/11/17] Levothyroxine [Synthroid 50 mcg (*)] 50 mcg PO DAILY06 05/14/17 [Last Taken ] Lidocaine [Lidoderm] 1 - 2 each TP HS 05/14/17 [Last Taken 05/13/17] Multivitamins [Multivitamin (*)] 1 each PO DAILY 05/14/17 [Last Taken 05/11/17] Ondansetron [Ondansetron Odt] 8 mg PO TID PRN 05/14/17 [Last Taken 05/10/17] busPIRone [Buspar (*)] 15 mg PO BID 05/14/17 [Last Taken 05/13/17] Alteplase [Cathflo Activase 2 mg (*)] 2 mg IVP PRN PRN vial 05/21/17 [Last Taken Unknown] Aspirin [Aspirin 325 mg (*)] 325 mg PO DAILY tab 05/21/17 [Last Taken Unknown] DAPTOmycin [Cubicin] 300 mg IV DAILY@1000 ml 05/21/17 [Last Taken Unknown] Docusate Sodium [Colace 100 MG (*)] 100 mg PO BID cap 05/21/17 [Last Taken Unknown] Gabapentin [Neurontin 100 MG (*)] 300 mg PO TID #90 cap 05/21/17 [Last Taken Unknown] LORazepam [Ativan (*)] 0.5 mg PO Q4HRS PRN #30 tab 05/21/17 [Last Taken Unknown] Sterile Water Inj [Sterile Water] 10 ml IV DAILY syr 05/21/17 [Last Taken Unknown] cefTRIAXone [Rocephin] 2 gm IV DAILY vial 05/21/17 [Last Taken Unknown] morphINE SR [Ms Contin/Oramorph 15 mg (*)] 15 mg PO HS #30 tab 05/21/17 [Last Taken Unknown] oxyCODONE IR [Oxycodone Ir (*)] 5 - 10 mg PO Q3H PRN #60 tab 05/21/17 [Last Taken Unknown] Residential Antibiotics: Daptomycin 300 mg IV Q 24 hr, ceftriaxone 2 g IV daily Residential Antibiotic Stop Date: 05/27/17 Discharge Medications: Refer to the Discharge Home Medication list for PRN reason. PICC Care - Routine: Yes - Orders Services needed: Home Care, Registered Nurse Home Care Face to Face: I certify that this patient was under my care and that I had the required [id number] encounter meeting the encounter requirements on the discharge day. My findings support the fact that the patient is homebound as defined in Home Care Face to Face Continued: CMS Chapter 7 Medicare Benefits Manual 30.1.1 , The condition of the patient is such that there exists a normal inability to leave home and consequently, leaving home would require a considerable and taxing effort. Diet Recommendation: no restrictions on diet Wound Care Instructions: change wound vac every and Thursday. I will see on Wednesdays at 4 pm at wound healing center. Please have pt come to appt with supplies. Activity/Weight Bearing Restrictions: nwb lle. Transfers are fine - Labs/Radiology CBC w/diff Date: 05/22/17 CMP Date: 05/22/17 CPK Date: 05/22/17 Call or Fax Lab and Imaging Results to: Dr. Ruiz, - Follow Up Care Current Providers and Referrals: Wound Healing Center,[facility] [Clinic] - 05/27/17 4:00 pm NONE *PRIMARY CARE P,. [Primary Care Provider] -
--- NOTE | 2017-05-22 18:24 | GDS ---
[f rep st] DISCHARGE SUMMARY ADMITTING DIAGNOSIS: Infected left below-knee amputation SECONDARY DIAGNOSES: Acute blood loss anemia, anemia of chronic disease, left leg dysplasia, osteoarthritis, hypothyroidism, and anxiety. REASON FOR ADMISSION: Infected left below-knee amputation. HOSPITAL COURSE: 56-year-old female, status post left hip arthroplasty with injury to external iliac artery resulting in left below-knee amputation. MRI done on May 06, 2017, revealed a 9 x 5 cm abscess, osteomyelitis of the tibia, and possible osteomyelitis or avascular necrosis of the femur. The patient was taken to the operating room May 14, 2017 for a left below-knee amputation revision. Necrotic muscle was removed and sent for pathology. A VeraFlo wound VAC was placed. Patient was started on ceftriaxone and vancomycin. The following day, patient was tachycardic, short of breath, and dizzy upon standing, likely due to her decreased hemoglobin and hematocrit. Blood products were not administered at the patient's request. She was started on Procrit. H/H and symptoms monitored. The wound was healthy. Due to her low hemoglobin, I elected not to restart Plavix (2 weeks from ideal stop date) and started Aspirin 325 mg daily. Pathology without osteomylitis. CONDITION: Hemoglobin and hematocrit stable at 6.7 and 22.2. DISCHARGE INSTRUCTIONS: Continue wound VAC. Home Health to change dressing Mondays and Fridays. I will change on Wednesdays. ABX per ID. DISCHARGE MEDICATIONS: Patient is to continue new prescriptions: Alteplase 2 mg, aspirin 325 mg, ceftriaxone 2 g, daptomycin 300 mg, docusate sodium 100 mg, gabapentin increased to 300 mg, lorazepam 0.5 mg, oxycodone IR 5-10 mg, vancomycin 125 mg. Patient is to continue BuSpar 15 mg, calcium carbonate 500 to 1000 mg, ondansetron 8 mg, Lidoderm 1-2 patch, levothyroxine 50 mcg, iron supplement 65 mg, folic acid 1 mg, beclomethasone 40, morphine SR 15 mg. Discontinue Plavix 75 mg, discontinue oxycodone IR 5 mg, and discontinue gabapentin 200 mg. DISCHARGE FOLLOWUP: Patient is to be seen at the [facility] this coming Thursday at 4:00 for a wound VAC change. Home Health to change dressing Mondays and Fridays. /[id number]/[id number] MTDD
--- NOTE | 2017-06-04 11:15 | GOP ---
[f rep st] OPERATIVE REPORT DATE OF OPERATION: 05/14/2017 SURGEON: Pina Greenberg MD ANESTHESIA: Dr. Armen Pratt/IV sedation. PREOPERATIVE DIAGNOSIS: Infected left [id number] amputation. POSTOPERATIVE DIAGNOSIS: Infected left [id number] amputation. PROCEDURE PERFORMED: Revision of left zcbkm-[id number]-[id number] amputation. FINDINGS: Necrotic muscle. SPECIMENS: Micro and pathology. ESTIMATED BLOOD LOSS: 500 cc. INDICATIONS: Samira Schmitz is a 56-year-old woman status post complex hip repair with injury to her iliac at an outside facility. She had that repaired. Due to her cheondoism beliefs, she did not acce pt blood products. Her hemoglobin drifted down to 2.6.She ultimately was able to have vascular repair and had a left BKA. She presented to the [facility] and I noted that there was a lot of ne crotic muscle. We obtained imaging and are taking her to the operating room to debride the necrotic m uscle and prove there is no osteomyelitis of the tibia. DESCRIPTION OF PROCEDURE: Patient was brought into the operating room and placed supine on the table . Monitored anesthesia care with IV sedation was performed. I infiltrated the area with 0.5% Marcai ne prior to making incisions. I opened up her previous stump and evacuated purulent material. I als o debrided the devitalized muscle back to healthy bleeding tissue. I identified the tibia and used a saw to get a portion of the tibia and I marked the new margin purple. I used a rasp to soften the ed ge. I was able to close the fascia back over the tibia. Hemostasis was controlled with electrocautery . I then placed a wound VAC over the wound. She was awakened in the operating room, transferred to PACU in stable to condition. She tolerated the procedure well. /[id number]/MODL
== END 2017-05-21 16:28 | disposition home health service (06) | DRG 475 ==
LOC: F3N 06:06 → OBSVTOIN 06:06 → F3E 10:10
PROVIDERS: ADMIT Surgery; ATTEND Surgery
PROC: 0Y6J0Z2 Detachment at Left Lower Leg, Mid, Open Approach (ICD-10-PCS; principal; 2017-05-14 07:15)
PROC: 02H633Z Insertion of Infusion Device into Right Atrium, Percutaneous Approach (ICD-10-PCS; 2017-05-19)
DX: T87.44 Infection of amputation stump, left lower extremity (principal); D62 Acute posthemorrhagic anemia; D63.8 Anemia in other chronic diseases classified elsewhere; E03.9 Hypothyroidism, unspecified; F41.9 Anxiety disorder, unspecified; Z53.1 Procedure and treatment not carried out because of patient's decision for reasons of belief and group pressure
CPT/HCPCS: 82607-90; C1751; J0690; J0696; J0878; J0885; J1170; J2250; J2270; J2704; J2916; J3010; J3420; P9041

== ENCOUNTER 2017-11-24 05:06 | Emergency (ER) | payer OTHER ==
[2017-11-24] MEDS ORDERED: HYDROmorphONE/DILAUDID 2 MG/ML INJ IVP ONE (05:12)
[2017-11-24] MEDS ORDERED: NS 1,000 ML IV ONE (05:12)
[2017-11-24 05:13] VITALS: BP 118/92
--- NOTE | 2017-11-24 05:14 | EDPHY ---
H & P Time Seen by Provider: 11/24/17 05:13 HPI/ROS: HPI CHIEF COMPLAINT: Sudden-onset left lower quadrant abdominal pain HISTORY OF PRESENT ILLNESS: Very pleasant 57-year-old female she presents emergency room left-sided abdominal pain. Sudden-onset started an hour ago woke her from sleep. With associated nausea 1 episode of vomiting. Rather sharp stabbing located left lower quadrant. Denies chest pain or shortness of breath. Never had this before. Experience 10/10 pain. Arrived by EMS. Currently pain is slightly better 6/10. 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 Past Surgical History: Left hip, left leg surgery. Abdominal surgery. Gallbladder removal. Social History: Denies drugs alcohol tobacco. Family History: Noncontributory ROS REVIEW OF SYSTEMS: 10 Systems were reviewed and negative with the exception of the elements mentioned in the history of present illness. Exam Constitutional nontoxic, triage nursing summary reviewed, vital signs reviewed , awake/alert. Eyes normal conjunctivae and sclera, EOMI, PERRLA. HENT normal inspection, atraumatic, moist mucus membranes, no epistaxis, neck supple/ no meningismus, no raccoon eyes. Respiratory clear to auscultation bilaterally, normal breath sounds, no respiratory distress, no wheezing. Cardiovascular rate normal, regular rhythm, no murmur, no edema, distal pulses normal. Gastrointestinal mild tender palpation left lower quadrant, scar present left lower quadrant, no rebound, no guarding, normal bowel sounds, no distension, no pulsatile mass. Genitourinary no CVA tenderness. Musculoskeletal no midline vertebral tenderness, full range of motion, no calf swelling, no tenderness of extremities, no meningismus, good pulses, neurovascularly intact. Skin pink, warm, & dry, no rash, skin atraumatic. Neurologic awake, alert and oriented x 3, AAOx3, moves all 4 extremities equally, motor intact, sensory intact, CN II-XII intact, normal cerebellar, normal vision, normal speech. Psychiatric normal mood/affect. Heme/Lymph/Immune no lymphadenopathy. Differential diagnosis includes but is not limited to and in no particular order : Bowel obstruction, appendicitis, gallbladder disease, diverticulitis, colitis , enteritis, perforated viscus, gastritis, GERD, esophagitis, urinary tract infection, pyelonephritis, kidney stones Medical Decision Making: Plan for this patient IV establishment with IV fluid bolus, CT scan abdomen pelvis with IV contrast, IV Dilaudid for pain control. Check urinalysis, blood work, electrolytes. Re-evaluate. Re-evaluation: CT scan abdomen pelvis with IV contrast does show some hydronephrosis on the left side in the collecting system of the left kidney. CT scan abdomen pelvis shows large amount of beam hardening in the left hip that obscures the left lower quadrant left pelvis is very hard to see anything down the side. It is possible there is a stone there. Given the hydro on the left side. Patient did have sudden-onset left lower quadrant abdominal pain. Urinalysis pending. 0706: Urinalysis reviewed does show hematuria. This most likely consistent with a hydro on the left side and blood in her urine is consistent with a kidney stone. Unable to fully visualize the kidney stone due to the beam artifact on the CT scan. Patient understands she should follow up with Urology. Urine strainer will be provided. Additionally [place] Flomax for kidney stone management. I went over return precautions she understands return emergency room she develops worsening abdominal pain, fever, vomiting. Source: Patient, EMS - Medical/Surgical History Hx Asthma: Yes Hx Chronic Respiratory Disease: No Hx Diabetes: No Hx Cardiac Disease: No Hx Renal Disease: No Hx Cirrhosis: No Hx Alcoholism: No Hx HIV/AIDS: No Hx Splenectomy or Spleen Trauma: No Other PMH: ORS:ORTHO, SHEELA, HYST - Social History Smoking Status: Never smoked Constitutional: Initial Vital Signs Temperature (C) 36.7 C 11/24/17 05:06 Heart Rate 78 11/24/17 05:06 Respiratory Rate 16 11/24/17 05:06 Blood Pressure 118/92 H 11/24/17 05:06 O2 Sat (%) 100 11/24/17 05:06 O2 Delivery Mode Room Air Allergies/Adverse Reactions: No Known Allergies Allergy (Unverified 12/30/11 08:29) Home Medications: Medication Instructions Recorded Albuterol Sulfate [Proair Hfa] 8.5 gm IH Q4 PRN 05/14/17 Beclomethasone Qvar 40 [Qvar 40] 2 puffs IH BID 05/14/17 Calcium Carbonate [Tums 500MG (*)] 500 - 1,000 mg PO Q4 PRN 05/14/17 Folic Acid [Folic Acid 1 MG (*)] 1 mg PO DAILY 05/14/17 Iron/Vit C/Docusate [Rose-Sequels 1 each PO DAILY 05/14/17 65 mg (*)] Levothyroxine [Synthroid 50 mcg 50 mcg PO DAILY06 05/14/17 (*)] Lidocaine [Lidoderm] 1 - 2 each TP HS 05/14/17 Multivitamins [Multivitamin (*)] 1 each PO DAILY 05/14/17 Ondansetron [Ondansetron Odt] 8 mg PO TID PRN 05/14/17 busPIRone [Buspar (*)] 15 mg PO BID 05/14/17 Alteplase [Cathflo Activase 2 mg 2 mg IVP PRN PRN vial 05/21/17 (*)] Aspirin [Aspirin 325 mg (*)] 325 mg PO DAILY tab 05/21/17 DAPTOmycin [Cubicin] 300 mg IV DAILY@1000 ml 05/21/17 Docusate Sodium [Colace 100 MG (*)] 100 mg PO BID cap 05/21/17 Gabapentin [Neurontin 100 MG (*)] 300 mg PO TID #90 cap 05/21/17 LORazepam [Ativan (*)] 0.5 mg PO Q4HRS PRN #30 tab 05/21/17 Sterile Water Inj [Sterile Water] 10 ml IV DAILY syr 05/21/17 Vancomycin [Vancocin Oral Liquid] 125 mg PO BID 14 Days #70 udl 05/21/17 cefTRIAXone [Rocephin] 2 gm IV DAILY vial 05/21/17 morphINE SR [Ms Contin/Oramorph 15 15 mg PO HS #30 tab 05/21/17 mg (*)] oxyCODONE IR [Oxycodone Ir (*)] 5 - 10 mg PO Q3H PRN #60 tab 05/21/17 Hydrocodone/APAP 5/325 [[place] 1 - 2 tab PO Q4H PRN #10 tab 11/24/17 5/325] Ondansetron HCl [Zofran] 4 mg PO Q4-6PRN PRN #10 tablet 11/24/17 Tamsulosin HCl [Flomax] 0.4 mg PO DAILY #10 cap 11/24/17 Medical Decision Making - Data Points Laboratory Results: Laboratory Results 11/24/17 05:10 11/24/17 05:10 11/24/17 11/24/17 11/24/17 06:30 06:18 05:10 WBC RBC Hgb Hct MCV MCH MCHC RDW Plt Count MPV Neut % (Auto) Lymph % (Auto) [place] % (Auto) Eos % (Auto) Baso % (Auto) Nucleat RBC Rel Count Absolute Neuts (auto) Absolute Lymphs (auto) Absolute Monos (auto) Absolute Eos (auto) Absolute Basos (auto) Absolute Nucleated RBC Immature Gran % Immature Gran # RBC/WBC/PLT Morphology Platelet Estimate PT INR APTT VBG Lactic Acid 2.2 mmol/L H mmol/L (0.7-2.1) Sodium 142 mEq/L mEq/L (135-145) Potassium 3.8 mEq/L mEq/L (3.3-5.0) Chloride 102 mEq/L mEq/L (97-110) Carbon Dioxide 21 mEq/l L mEq/l (22-31) Anion Gap 19 mEq/L H mEq/L (8-16) BUN 15 mg/dL mg/dL (7-23) Creatinine 0.7 mg/dL mg/dL (0.6-1.0) Estimated GFR > 60 Glucose 106 mg/dL H mg/dL (70-100) Calcium 10.2 mg/dL mg/dL (8.5-10.4) Total Bilirubin 0.4 mg/dL mg/dL (0.1-1.4) Conjugated Bilirubin 0.2 mg/dL mg/dL (0.0-0.5) Unconjugated Bilirubin 0.2 mg/dL mg/dL (0.0-1.1) AST 29 IU/L IU/L (14-46) ALT 20 IU/L IU/L (9-52) Alkaline Phosphatase 126 IU/L IU/L (38-126) Total Protein 8.4 g/dL H g/dL (6.3-8.2) Albumin 4.6 g/dL g/dL (3.5-5.0) Lipase 179 IU/L IU/L (23-300) Urine Color YELLOW Urine Appearance HAZY Urine pH 5.0 (5.0-7.5) Ur Specific [place] 1.024 (1.002-1.030) Urine Protein NEGATIVE (NEGATIVE) Urine Ketones NEGATIVE (NEGATIVE) Urine Blood 3+ H (NEGATIVE) Urine Nitrate NEGATIVE (NEGATIVE) Urine Bilirubin NEGATIVE (NEGATIVE) Urine Urobilinogen NEGATIVE EU EU (0.2-1.0) Ur Leukocyte Esterase NEGATIVE (NEGATIVE) Urine RBC 50-182 /hpf H /hpf (0-3) Urine WBC 3-5 /hpf H /hpf (0-3) Ur Epithelial Cells TRACE /lpf /lpf (NONE-1+) Urine Mucus 1+ /lpf /lpf (NONE-1+) Urine Glucose NEGATIVE (NEGATIVE) 11/24/17 11/24/17 05:10 05:10 WBC 9.50 10^3/uL 10^3/uL (3.80-9.50) RBC 4.81 10^6/uL 10^6/uL (4.18-5.33) Hgb 14.7 g/dL g/dL (12.6-16.3) Hct 43.6 % % (38.0-47.0) MCV 90.6 fL fL (81.5-99.8) MCH 30.6 pg pg (27.9-34.1) MCHC 33.7 g/dL g/dL (32.4-36.7) RDW 12.7 % % (11.5-15.2) Plt Count 343 10^3/uL 10^3/uL (150-400) MPV 9.2 fL fL (8.7-11.7) Neut % (Auto) 26.9 % L % (39.3-74.2) Lymph % (Auto) 63.6 % H % (15.0-45.0) [place] % (Auto) 7.3 % % (4.5-13.0) Eos % (Auto) 1.8 % % (0.6-7.6) Baso % (Auto) 0.3 % % (0.3-1.7) Nucleat RBC Rel Count 0.0 % % (0.0-0.2) Absolute Neuts (auto) 2.56 10^3/uL 10^3/uL (1.70-6.50) Absolute Lymphs (auto) 6.04 10^3/uL H 10^3/uL (1.00-3.00) Absolute Monos (auto) 0.69 10^3/uL 10^3/uL (0.30-0.80) Absolute Eos (auto) 0.17 10^3/uL 10^3/uL (0.03-0.40) Absolute Basos (auto) 0.03 10^3/uL 10^3/uL (0.02-0.10) Absolute Nucleated RBC 0.00 10^3/uL 10^3/uL (0-0.01) Immature Gran % 0.1 % % (0.0-1.1) Immature Gran # 0.01 10^3/uL 10^3/uL (0.00-0.10) RBC/WBC/PLT Morphology TNP Platelet Estimate TNP PT 12.4 SEC SEC (12.0-15.0) INR 0.90 (0.83-1.16) APTT 25.8 SEC SEC (23.0-38.0) VBG Lactic Acid Sodium Potassium Chloride Carbon Dioxide Anion Gap BUN Creatinine Estimated GFR Glucose Calcium Total Bilirubin Conjugated Bilirubin Unconjugated Bilirubin AST ALT Alkaline Phosphatase Total Protein Albumin Lipase Urine Color Urine Appearance Urine pH Ur Specific [place] Urine Protein Urine Ketones Urine Blood Urine Nitrate Urine Bilirubin Urine Urobilinogen Ur Leukocyte Esterase Urine RBC Urine WBC Ur Epithelial Cells Urine Mucus Urine Glucose Medications Given: Discontinued Medications Hydromorphone HCl (Dilaudid) 0.5 mg IVP EDNOW ONE Stop: 11/24/17 05:13 Last Admin: 11/24/17 05:16 Dose: 0.5 mg Sodium Chloride (Ns) 1,000 mls @ 0 mls/hr IV EDNOW ONE; Wide Open PRN Reason: Protocol Stop: 11/24/17 05:13 Last Admin: 11/24/17 05:16 Dose: 1,000 mls Ketorolac Tromethamine (Toradol) 15 mg IVP EDNOW ONE Stop: 11/24/17 06:31 Last Admin: 11/24/17 06:33 Dose: 15 mg Departure - Departure Disposition: Home, Routine, Self-Care Clinical Impression: Flank pain Condition: Good Instructions: Kidney Stones (ED), Renal Colic (ED) Additional Instructions: 1. Drink lots of fluids 2. Stay well-hydrated. 3. Follow up with Urology 4. Return emergency room if there is worsening abdominal pain fever vomiting. Referrals: NONE *PRIMARY CARE P,. [Primary Care Provider] - As per Instructions Yosef Steinberg MD [Medical Doctor] - As per Instructions Prescriptions: Hydrocodone/APAP 5/325 [[place] 5/325] 1 - 2 tab PO Q4H PRN #10 tab PRN Reason: Pain, Moderate Ondansetron HCl [Zofran] 4 mg PO Q4-6PRN PRN #10 tablet PRN Reason: Nausea/Vomiting, Use 1st Tamsulosin HCl [Flomax] 0.4 mg PO DAILY #10 cap
[2017-11-24 05:19] LABS: PLATELET COUNT 343 10^3/uL (150-400)
[2017-11-24] MEDS ORDERED: IOPAMIDOL (ISOVUE-300) 100 ML BTL ONE ×2 (05:27→05:36)
[2017-11-24 05:28] LABS: INR 0.9 (0.83-1.16); PROTIME(PATIENT) 12.4 SEC (12.0-15.0)
[2017-11-24] MEDS ORDERED: KETOROLAC 15 MG/1 ML SDV IVP ONE (06:30)
== END 2017-11-24 07:31 | disposition home or self-care (01) ==
LOC: EDUNIT#
DX: R10.32 Left lower quadrant pain (principal); N13.39 Other hydronephrosis; E86.9 Volume depletion, unspecified; Z96.642 Presence of left artificial hip joint; Z89.512 Acquired absence of left leg below knee
CPT/HCPCS: 96374; J1170; J1885; Q9967

== ENCOUNTER 2018-05-04 08:29 | Day surgery (SDC) | payer OTHER ==
--- NOTE | 2018-05-01 05:40 | GHP ---
[f rep st] PRE-OP HISTORY AND PHYSICAL CURRENT COMPLAINT: Left knee and left thigh pain. HISTORY OF PRESENT ILLNESS: The patient is a 57-year-old female who had previously undergone a left total hip arthroplasty, however, there were vascular complications and she had a left below-knee amputation done by Dr. Greenberg. She was seen in our office for knee pain and for leg pain. She was diagnosed with medial and lateral meniscal tears as well as avascular necrosis of the femur. ALLERGIES: She lists no drug allergies. CURRENT MEDICATION: Include buspirone, citalopram, diclofenac, estradiol, levothyroxine, ProAir, QVAR, tramadol, trazodone, and zolpidem. PRIOR MEDICAL PROBLEMS: Include anemia, arthritis, asthma, and thyroid problems. PRIOR SURGERIES: Include orthopedic surgery x3, lower leg amputation x1, GI surgery x1, heart surgery x1, other x1. SOCIAL HISTORY: She has never smoked and she does not drink alcohol. PHYSICAL EXAMINATION: HEENT: The patient's pupils are equal, round, and reactive to light. CHEST: Clear to auscultation. HEART: Regular rate and rhythm. ABDOMEN: Soft and nontender. EXTREMITIES: The patient has pain on the medial and lateral joint of her knee. She has a healing below-knee amputation stump. IMAGING: MRI exams revealed tears of the lateral and meniscus as well as AVN of the distal and midportion of her femur. ASSESSMENT AND PLAN: Patient is status post left knee medial and lateral meniscal tear with avascular necrosis of the femur. Plan is take her to the operating room to undergo a left knee arthroscopy with reaming of the femur in order to create a healing response and hopefully bring living bone back to her femur. /[id number]/MODL MTDD
[~2018-05-04 08:29] MED LIST changes: +BACITRACIN 50,000 UNITS/10 ML SYR IRR ONE; -BUPIVACAINE 0.5% 30 ML SDV ONE; +BUPIVACAINE/DEXTROSE 7.5MG/ML 2 ML SPINAL AMP SP ONE; +BUPIVACAINE/EPI 0.5% 30 ML SDV ONE; +LIDOCAINE 2% 100 MG/5 ML SYR ONE; +ONDANSETRON 4 MG/2 ML VIAL ONE; +POLYMYXIN B SULFATE 500,000 UNIT/10 ML SYR IRR ONE; +PROPOFOL/EMULSION 500 MG/50 ML BOTTLE IV ONE; +TRANEXAMIC ACID 3,000 MG in NS (SYRINGE) 50 ML IRR ONE; +fentaNYL 100 MCG/2 ML INJ ONE
[2018-05-04] MEDS ORDERED: LR 1,000 ML IV SCH ×3 (08:59→11:30)
[2018-05-04] MEDS ORDERED: PREGABALIN 150 MG CAP PO ONE (08:59)
[2018-05-04] MEDS ORDERED: ACETAMINOPHEN 500 MG TAB PO ONE (08:59)
[2018-05-04] MEDS ORDERED: ceFAZolin 2 GM/DEXTROSE 100 ML IV ONE (08:59)
[2018-05-04] MEDS ORDERED: ROPIVACAINE HCL 150 MG/30 ML INJ ONE ×2 (09:02→11:15)
--- NOTE | 2018-05-04 09:04 | POSTOPPROG ---
Post Op Note Date of Operation: 05/04/18 Surgeon: Lauren Casey Candlemaking Laborer: coltrain Anesthesia: Epidural, IV Sedation, Other (Specify) Pre-op Diagnosis: l knee avn Procedure: l tkr Inf/Abcess present in the surg proc area at time of surgery?: No Depth: Deep Incisional (Fascial) EBL: 100-500
[2018-05-04] MEDS ORDERED: MAGNESIUM HYDROXIDE 30 ML UDCUP PO PRN (09:05)
[2018-05-04] MEDS ORDERED: DIPHENOXYLATE/ATROPINE LOMOTIL 1 TAB PO PRN (09:05)
[2018-05-04] MEDS ORDERED: ONDANSETRON DISINTEGRATING 4 MG TAB PO PRN (09:05)
[2018-05-04] MEDS ORDERED: CYCLOBENZAPRINE 10 MG TAB PO PRN (09:05)
[2018-05-04] MEDS ORDERED: diphenhydrAMINE 25 MG CAP PO PRN (09:05)
[2018-05-04] MEDS ORDERED: PROMETHAZINE HCL 25 MG SUPPR PR PRN (09:05)
[2018-05-04] MEDS ORDERED: METOCLOPRAMIDE 10 MG/2 ML VIAL IVP PRN (09:05)
[2018-05-04] MEDS ORDERED: TAPENTADOL HCL 50 MG TAB PO PRN (09:05)
[2018-05-04] MEDS ORDERED: oxyCODONE IR 5 MG TAB PO PRN (09:05)
[2018-05-04] MEDS ORDERED: TEMAZEPAM 15 MG CAP PO PRN (09:05)
[2018-05-04] MEDS ORDERED: POLYETHYLENE GLYCOL 3350 17 GM PKT PO PRN (09:05)
[2018-05-04] MEDS ORDERED: PROMETHAZINE HCL 25 MG/ML INJ IVP PRN (09:05)
[2018-05-04] MEDS ORDERED: LACTULOSE 20 GM/30 ML UDCUP PO PRN (09:05)
[2018-05-04] MEDS ORDERED: ONDANSETRON 4 MG/2 ML VIAL IVP PRN (09:05)
[2018-05-04] MEDS ORDERED: BISACODYL 10 MG SUPP PR PRN (09:05)
--- NOTE | 2018-05-04 09:13 | PDHPUP ---
History & Physical Update H&P update statement: This history and physical update is based on an assessment of the patient which was completed after admission or registration (within 24 hours), but prior to the surgery/procedure. H&P update: H&P reviewed & patient examined, no change in patient's condition since H&P completed
[2018-05-04] MEDS ORDERED: TRANEXAMIC ACID 3,000 MG/50 ML BAG IRR ONE (09:22)
--- NOTE | 2018-05-04 09:30 | PDANEPAE ---
ANE History of Present Illness Left knee pain, partial meniscectomy on knee of BKA ANE Past Medical History - Cardiovascular History Hx Hypertension: No Hx Arrhythmias: No Hx Chest Pain: No Hx Coronary Artery / Peripheral Vascular Disease: No Hx CHF / Valvular Disease: No Hx Palpitations: No Cardiovascular History Comment: RUNS LOW BP - Pulmonary History Hx COPD: No Hx Asthma/Reactive Airway Disease: Yes Hx Recent Upper Respiratory Infection: No Hx Oxygen in Use at Home: No Hx Sleep Apnea: No Sleep Apnea Screening Result - Last Documented: Negative Pulmonary History Comment: asthma uses Qvar - Neurologic History Hx Cerebrovascular Accident: No Hx Seizures: No Hx Dementia: No Neurologic History Comment: 12/07 POSS TIA IN PAST - Endocrine History Hx Diabetes: No Endocrine History Comment: HYPOTHYROID - Renal History Hx Renal Disorders: No Renal History Comment: kidney stones - Liver History Hx Hepatic Disorders: No Hepatic History Comment: CHOLECYSTECTOMY - Neurological & Psychiatric Hx Hx Neurological and Psychiatric Disorders: Yes Neurological / Psychiatric History Comment: ANXIETY,PTSD,panic attacks - Cancer History Hx Cancer: No - Congenital Disorder History Hx Congenital Disorders: No - GI History Hx Gastrointestinal Disorders: Yes Gastrointestinal History Comment: ACID REFLUX. CONSTIPATION - Other Health History Other Health History: L LEG DYSPLASIA. OSTEOARTHRITIS. 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 VASCULAR SURGERY REPAIR. cardiac arrest post hip replacement. L HIP DEBRIDEMENT W/WOUND VAC. L LEG AMPUTATION BK - ALL AT [facility] IN [place]. CHOLECYSTECTOMY. HYSTERECTOMY. C- SECTION X3. HIP SURGERY X2 ANE Review of Systems Review of Systems: - Exercise capacity METS (RN): 3 METS ANE Patient History - Allergies Allergies/Adverse Reactions: No Known Allergies Allergy (Verified 04/28/18 12:46) - Home Medications Home Medications: Albuterol Sulfate [Proair Hfa] 05/14/17 [Last Taken 05/11/17] Beclomethasone Qvar 40 [Qvar 40] 05/14/17 [Last Taken Unknown] Calcium Carbonate [Tums 500MG (*)] 05/14/17 [Last Taken Unknown] Folic Acid [Folic Acid 1 MG (*)] 05/14/17 [Last Taken Unknown] Iron/Vit C/Docusate [Rose-Sequels 65 mg (*)] 02/22/18 [Last Taken 05/11/17] Levothyroxine [Synthroid 50 mcg (*)] 05/14/17 [Last Taken 05/13/17] Multivitamins [Multivitamin (*)] 05/14/17 [Last Taken 05/11/17] busPIRone [Buspar (*)] 05/14/17 [Last Taken 05/13/17] Aspirin 04/28/18 [Last Taken Unknown] Citalopram 04/28/18 [Last Taken Unknown] Diclofenac Potassium 04/28/18 [Last Taken Unknown] Docusate Sodium [Colace 100 MG (*)] 04/28/18 [Last Taken Unknown] Ondansetron HCl [Zofran] 04/28/18 [Last Taken Unknown] Trazodone HCl 04/28/18 [Last Taken Unknown] oxyCODONE IR [Oxycodone Ir (*)] 04/28/18 [Last Taken Unknown] - Smoking Hx Smoking Status: Never smoked - Family Anes Hx Family Hx Anesthesia Complications: MOTHER HAD ARREST DURING INDUCTION OF ANESTHESIA ANE Labs/Vital Signs - Vital Signs Height: 152.4 cm Weight: 61.235 kg ANE Physical Exam - Airway Mallampati Score: Class 1 Mouth exam: normal dental/mouth exam - Pulmonary Pulmonary: no respiratory distress, no rales or rhonchi - Cardiovascular Cardiovascular: regular rate and rhythym, no murmur, rub, or gallop - ASA Status ASA Status: II (Left BKA, NO BLOOD (synthetic products ok) and documented on the chart)
[2018-05-04] MEDS ORDERED: EPINEPHrine 1 MG/ML INJ ONE (09:39)
[2018-05-04] MEDS ORDERED: MIDAZOLAM 2 MG/2 ML VIAL IVP ONE (09:42)
[2018-05-04] MEDS ORDERED: MIDAZOLAM 2 MG/2 ML VIAL ONE (09:43)
[2018-05-04] MEDS ORDERED: PROPOFOL 200 MG/20 ML VIAL ONE (10:01)
[2018-05-04] MEDS ORDERED: HYDROmorphONE/DILAUDID 2 MG/ML INJ ONE (11:01)
--- NOTE | 2018-05-04 11:15 | POSTOPPROG ---
Post Op Note Date of Operation: 05/04/18 Surgeon: Lauren Casey Die Stamping Press Operator: coltrain Anesthesia: GET(General Endotracheal) Pre-op Diagnosis: l mmt/lmt/avn Procedure: l knee scope with partial med/lat menisectomy with femoral reaming Inf/Abcess present in the surg proc area at time of surgery?: No Depth: Deep Incisional (Fascial) EBL: 100-500
[2018-05-04] MEDS ORDERED: KETOROLAC 15 MG/1 ML SDV IVP SCH (12:00)
[2018-05-04] MEDS ORDERED: ACETAMINOPHEN 325 MG TAB PO SCH (12:00)
[2018-05-04] MEDS ORDERED: traMADol 50 MG TAB PO SCH (12:00)
[2018-05-04] MEDS ORDERED: ACETAMINOPHEN 325 MG TAB ONE (12:03)
[2018-05-04] MEDS ORDERED: KETOROLAC 15 MG/1 ML SDV ONE (12:04)
--- NOTE | 2018-05-04 12:16 | GOP ---
[f rep st] OPERATIVE REPORT DATE OF OPERATION: 05/04/2018 SURGEON: Lauren Casey MD SCHOOL PHOTOGRAPH EDITOR: Ketan Mendez, CSFA, LSA, whose presence was medically necessary. ANESTHESIA: Via endotracheal intubation. PREOPERATIVE DIAGNOSIS: Left knee medial and lateral meniscal tear with fibrosis as well as avascula r necrosis of the femur. POSTOPERATIVE DIAGNOSIS: Left knee medial and lateral meniscal tear with fibrosis as well as avascul ar necrosis of the femur with grade 3 chondral change to the posterolateral femoral condyle. PROCEDURE PERFORMED: Left knee arthroscopy with partial medial and partial lateral meniscectomy, cho ndroplasty of the lateral compartment, as well as femoral reaming. FINDINGS: INDICATIONS: This is a 57-year-old female who had previously undergone a left total hip arthroplasty with a complicated postoperative course that included a below-knee amputation. She was seen in the office, noted to have medial and lateral meniscal tears. MRI also revealed avascular necrosis of her distal femur. It was decided to do knee arthroscopy as well as femoral reaming in order to try and promote bone revascularization. DESCRIPTION OF PROCEDURE: Patient brought to the operating room after the left side had been identif ied as the correct side by the patient, nurse, physician. Once in the operating room, she was placed under general anesthesia using endotracheal intubation. Once asleep, tourniquet was placed around t he upper portion of the left leg, with the left lower extremity then sterilely prepped and draped in the usual fashion using GSI solution. Once prepped and draped, the limb was exsanguinated, tournique t inflated to 250 mmHg. Incision was made in the superomedial portion of the knee with an outflow tr ocar introduced without difficulty. A second incision was made lateral to the patellar tendon betwee n the inferior pole of the patella and the tibial plateau with the camera introduced without difficul ty. Inspection of the joint revealed no loose bodies in the suprapatellar pouch or the medial and la teral gutter. There was noted to be abundant amount of scar tissue within the suprapatellar pouch an d the medial and lateral gutter. The ACL was hidden by scar tissue within the intercondylar notch th at had to be cleared away before noting that the ACL looked good. Inspection of the medial compartme nt revealed tearing of the posterior horn of the medial meniscus. Inspection of the lateral compartm ent revealed some tearing of the lateral meniscus posterior horn but grade 3 chondral changes noted t o the posterior portion of the lateral femoral condyle. Therefore, a third incision was made medial to the patellar tendon to the inferior pole of the patella and tibial plateau, and alternatingly usin g arthroscopic 3.5 mm shaver and a straight biter, were used to debride and debulk the tears of the m edial and lateral meniscus and remove the loose fragments got from the posterior portion of the later al compartment. Once completed, the lateral parapatellar incision was lengthened in order to gain ac cess to the intercondylar notch in a straight shot, with the blunt trocar from the camera used to cre ate a hole 1 cm anterior to the attachment of the PCL, and then sequential reamers used, hand reaming up to a size 13, which was noted to have a small amount of chatter with regard to the cortical bone. Once completed, the wound was thoroughly irrigated with an antibiotic solution, with irrigation pas sed up into the femoral canal in order to remove any of the necrotic portions of bone. Once finished , the parapatellar arthrotomy wound was closed using 0-Vicryl suture in a [id number] type stitch for the extensor mechanism, 2-0 Vicryl suture for the subcutaneous layers, and a 3-0 V-Loc suture in a running subcuticular stitch. The portal sites were then closed with 3-0 nylon suture in a figure- of-eight type stitch. 30 cc of Marcaine was infused in the knee joint as well as 30 cc of tranexamic acid in solution. The arthrotomy wound was dressed with Steri-Strips. All wounds were then dressed with Xeroform, 4 x 4, wrapped in Kerlix. Leg was completely undraped in the operating room. Tourni quet removed from the thigh after it had been turned down at 42 minutes. The leg was taken out of it s leg price. Beto wrap placed around the knee and thigh. She then had the right leg taken out of it s leg price. She was woken up, extubated, transferred onto a stretcher, and sent to recovery room i n good condition. TOURNIQUET TIME: 42 minutes. /[id number]/MODL
[2018-05-04 13:36] VITALS: BP 108/74
[2018-05-04] MEDS ORDERED: ceFAZolin 2 GM/DEXTROSE 100 ML IV SCH ×3 (14:00→22:28)
--- NOTE | 2018-05-04 16:56 | POSTANESTH ---
Post Anesthetic Evaluation Cardiovascular Status: Normal, Stable Respiratory Status: Normal, Stable Level of Consciousness/Mental Status: Can Participate in Eval, Alert and Oriented Pain Control: Adequate, Prn Tx Ordered Nausea/Vomiting Control: Adequate, Prn Tx Ordered Complications Possibly Related to Anesthesia: None Noted
[2018-05-04] MEDS ORDERED: SENNOSIDES/DOCUSATE SODIUM TAB PO SCH (21:00)
[2018-05-04] MEDS ORDERED: FAMOTIDINE 20 MG TAB PO SCH (21:00)
[2018-05-05] MEDS ORDERED: RIVAROXABAN 10 MG TAB PO SCH (09:00)
== END 2018-05-04 13:15 | disposition home or self-care (01) ==
LOC: F1N 08:29 → UNDOADMOB 08:29 → FSGY 08:29 → F3N 08:49 → F1N 08:49 → EDSTATUS 09:30 → UNDODISOB 13:15 → FSGY 13:15
PROVIDERS: ATTEND Orthopaedic Surgery
PROC: 0QB Lower Bones, Excision (ICD-10-PCS; principal; 2018-05-04 09:30)
PROC: 0SBD4ZZ Excision of Left Knee Joint, Percutaneous Endoscopic Approach (ICD-10-PCS; principal; 2018-05-04 09:30)
PROC: 0MQP4ZZ Repair Left Knee Bursa and Ligament, Percutaneous Endoscopic Approach (ICD-10-PCS; principal; 2018-05-04 09:30)
DX: M23.322 Other meniscus derangements, posterior horn of medial meniscus, left knee (principal); M23.352 Other meniscus derangements, posterior horn of lateral meniscus, left knee; M87.852 Other osteonecrosis, left femur; M94.8X6 Other specified disorders of cartilage, lower leg; Z89.512 Acquired absence of left leg below knee
CPT/HCPCS: J0171; J0690; J1170; J1885; J2001; J2250; J2405; J2704; J2795; J3010